=== PATIENT | male | born 1945 | race Caucasian/White ===

== ENCOUNTER → 2018-01-26 08:00 | Outpatient (CLI) | payer MEDICARE, SELFPAY | PROVIDERS: PCP Nurse Practitioner Family; Visit Provider Urology | DX: Z87.448 Personal history of other diseases of urinary system (principal); Z80.42 Family history of malignant neoplasm of prostate; Z87.440 Personal history of urinary (tract) infections; I10 Essential (primary) hypertension | CPT/HCPCS: 99213 ==

== ENCOUNTER 2018-02-22 08:41 | Observation (INO) | payer MEDICARE, SELFPAY ==
[2018-02-22] VITALS (16 sets, daily range): BP systolic 136–176; BP diastolic 72–107; PULSE 68–98; RESP 8–22; TEMP 36.5–37; O2SAT 95–100
--- NOTE | 2018-02-22 09:42 | W.ED.GENAD ---
Discharge Plan Disposition Patient Disposition: [facility] INPATIENT Condition: Stable Discharge Details Chief Complaint: CVA/TIA Clinical Impression: TIA (transient ischemic attack) Reason For Visit: TIA Admit Date/Time: 02/22/18 10:45 Admit Provider: Osmani Carey Attending Provider: Osmani Carey Primary Care Provider: Eugenia Garrett ED Provider: Cynthia Meléndez Discharge Instructions Diet:: Low fat diet. Discharge Data Discharge Date/Time-TO BE ENTERED AT DEPARTURE: 02/22/18 12:53 Medical Decision Making MDM Narrative Medical decision making narrative: Patient is a 72-year-old male with a history of hypertension who presents for 2 episodes of right hand tingling and an episode of blurry vision starting at 745 this morning. All his symptoms are resolved at present. States the 2 episodes of right hand tingling occurred 30 minutes apart, and each lasted 1 minute and then resolved. Denies any weakness of his extremities. States that he was sitting at the computer and had an episode where the right side of the screen was blurry which lasted approximately 1 minute and then resolved. He admits to dizziness with the first episode and not since then. He denies chest pain, shortness of breath, palpitations headache, recent antibiotics or sick contacts. He admits to recent travel in which he drove from [place] 3 hours last night. Blood pressure 176/75, remainder vitals within normal limits. Patient appears nontoxic, airway intact and no acute distress. He has no focal deficits. Normal cranial nerve testing. Muscle strength 5/5 bilateral upper and lower extremities. 0908 --EKG notes a rate of 76, sinus, no acute ST elevation or depression. QTc 441. QRS 92. Differential diagnosis includes CVA, TIA, electrolyte abnormality. Suspect most likely TIA. Will send for stat CT head as well as labs, chest x-ray, coagulation studies. 1000 --CT head and chest x-ray negative. Labs reviewed and unremarkable. Glucose 136. Will admit for TIA. Patient is agreeable. Patient is not taking a daily aspirin. 1040 --discussed with hospitalist -accepts patient for admission. Course documentation not done by Dr. Meléndez. HPI - General Adult General Mode of arrival: ambulatory. Date/Time Provider Initiated Documentation: 02/22/18 09:20. Limitations to Documentation: no limitations. Information obtained by: patient. HPI Narrative: Patient is a 72-year-old male with history of hypertension who presents with 2 episodes of right hand numbness, and one episode of blurry vision this morning. 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 States it lasted approximately 1 minute and then resolved. States that 815 he was on the computer and states the right side of the screen became blurry which last approximately 1 minute and then resolved. He states during this episode of blurry vision, he had return of the right upper extremity numbness which lasted approximately 1 minute and then resolved. He admits to some dizziness with the first episode of right hand tingling but not since then. He denies chest pain, shortness of breath, headache, palpitations. He admits to traveling from [place] last night driving approximately 3 hours. He denies any leg pain or swelling, recent surgery, recent antibiotics, or any other new recent medications. Past medical history: Exercise induced asthma, hypertension, cataract, sciatica Surgical history: Colectomy due to ruptured diverticula, cataract surgery, right rotator cuff repair, hernia repair Social history, former smoker, drinks 2 alcoholic drinks daily, occasional medical marijuana for sciatica Medications: Albuterol, ramipril, as needed Viagra Allergies denies PCP: Maritza Garrett Related Data Home Medications Medication Instructions Recorded Confirmed albuterol sulfate 1 - 2 puff INHALATION Q6H PRN 03/24/14 02/22/18 inhaler fluticasone [Flovent HFA] 12 gm INHALATION DIRECTED 03/24/14 02/22/18 inhaler ramipril 5 mg PO DAILY tab-cap 03/24/14 02/22/18 sildenafil [Viagra] 100 mg PO PRN 03/24/14 02/22/18 Medical Marijuana 1 puff INHALATION PRN 05/13/17 02/23/18 Previous Rx's Medication Instructions Recorded aspirin 325 mg PO DAILY #30 tab 02/23/18 atorvastatin [Lipitor] 40 mg PO QPM #30 tab 02/23/18 Allergies Allergy/AdvReac Type Severity Reaction Status Date / Time No Known Allergies Allergy Unverified 02/22/18 09:27 General Stated Complaint: CVA/TIA HILARY: 3 Review of Systems Review of Systems All systems reviewed & are unremarkable except as noted in HPI and below Constitutional Denies chills, Denies excessive sweating, Denies fatigue, Denies fever(s), Denies weakness and Denies weight loss Eyes Patient Reports system reviewed and no additional complaints, except as docu, Denies blurry vision and Reports loss of vision ENT Denies vertigo, Reports dizziness, Denies otalgia, Denies nasal congestion, Denies sore throat and Denies throat swelling Cardiovascular Denies chest pain, Denies syncope, Denies rapid heart rate and Denies dyspnea Respiratory Denies dyspnea Gastrointestinal Denies abdominal pain, Denies diarrhea and Denies vomiting Genitourinary Denies hematuria, Denies dysuria and Denies flank pain Musculoskeletal Denies back pain, Denies joint swelling and Reports numbness Integumentary/Breasts Denies lesions and Denies rash Neurologic Denies behavioral changes, Denies confusion, Denies vertigo, Reports dizziness, Denies syncope, Denies focal weakness, Reports loss of vision, Reports numbness and Denies weakness Psychiatric Denies behavioral changes, Denies confusion and Denies depression Endocrine Denies excessive sweating and Denies fatigue Hematologic/Lymphatic Denies easy bruising and Denies lymphadenopathy Allergic/Immunologic Denies throat swelling Exam Const General: cooperative and healthy appearing Orientation: alert and awake HENMT Head: normal to inspection Ears: hearing grossly normal bilaterally, external ears normal and TM's normal bilaterally General nose exam: external nose normal Face and sinus: normal facial exam Mouth: oral mucosae normal Teeth and gingiva: dentition normal Throat: posterior oropharynx normal Eyes General: appearance normal, both eyes and all related structures Eyelids: eyelids normal Pupils: PERRL EOM: EOM intact bilaterally Neck Neck: normal visual inspection Lymphatic: no lymphadenopathy noted Chest Chest: normal inspection of the chest Resp Effort & Inspection: normal respiratory effort and able to speak in complete sentences Auscultation: clear to auscultation bilaterally Cardio Rate: regular rate Rhythm: regular rhythm GI Inspection: normal to inspection Palpation: soft, not firm, no guarding, no hepatosplenomegaly, no masses and nontender Auscultation: normal bowel sounds Back/Spine/Pelvis Back: no CVA tenderness Skin General skin exam: no rashes or lesions noted Neuro General: alert, awake, oriented x3 and no focal motor deficits Cranial Nerves: CN's II-XI intact bilaterally Cognition: normal cognition Speech: speech normal Gait: normal gait Motor: muscle tone normal throughout, strength 5/5 throughout and other (Normal radial/median/ulnar nerve function bilaterally) Sensory Exam: no sensory deficits noted Extrem General: normal to inspection, full ROM and normal capillary refill Psych Appearance: grossly normal Mental Status: mental status grossly normal Speech and Movement: speech and movement normal Affect: normal affect Thought Process: normal Course Mr. Martinez is a 72-year-old gentleman with hypertension who presented to the emergency department yesterday after experiencing transient right hand numbness and right hemianopsia. 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 He went to his recliner to rest and after a few minutes his symptoms resolved. He and his then ate breakfast and around 8:15 in the morning he sat down at his desk to read an email. At that point he experienced right hemianopsia and persistent right hand numbness. He mentioned to his that he did not feel right and she noted that he had some altered mental status and increasing confusion. It was at this point that his transported him to the emergency department for further evaluation. In the emergency room he had a twelve-lead EKG which showed no acute ischemic changes with baseline rhythm sinus. CT of the head and chest x-ray were both negative. Blood work notable for a glucose of 136, however blood work was not fasting, otherwise CBC and BMP were completely normal. Despite having complete resolution of his symptoms he was admitted to the hospitalist service for further monitoring for suspected TIA. He went on to have a carotid artery ultrasound which revealed Mild calcific plaque in the common carotid bulbs. No significant internal carotid artery stenosis. Brain MRI showed Minimal small vessel disease of white matter. No acute abnormality. He had a negative MRA of the [place]. He had an echocardiogram which was normal, with an LVEF of 60-65%. His TSH was normal at 2.04. His Hgb A1c was 5.4. His lipid panel revealed elevated LDL at 139, total cholesterol 199, HDL 51, triglicerides were 87. He was monitored on telemetry which revealed no arrhythmia. He was in Sinus bradycardia to sinus rhythm, with rates in the 50s-70s. He had no recurrence of his symptoms throughout his hospital stay. He was completely back to his baseline on the day of discharge. He was started on a full strength aspirin and a high intensity statin. He will follow up with neurology and his PCP. Vital Signs Temperature 97.9 F 02/22/18 08:59 Pulse 97 H 02/22/18 08:59 Respiratory Rate 18 02/22/18 08:59 Blood Pressure 176/75 H 02/22/18 08:59 Pulse Oximetry 99 02/22/18 08:59 Temperature 97.9 F 02/22/18 08:59 Pulse 97 H 02/22/18 08:59 Respiratory Rate 18 02/22/18 09:26 Blood Pressure 176/75 H 02/22/18 08:59 Pulse Oximetry 99 02/22/18 08:59
--- NOTE | 2018-02-22 09:47 | ED.GENADUL_ITS ---
Discharge Plan Disposition Patient Disposition: [facility] INPATIENT Condition: Stable Discharge Details Chief Complaint: CVA/TIA Clinical Impression: TIA (transient ischemic attack) Reason For Visit: TIA Admit Date/Time: 02/22/18 10:45 Admit Provider: Osmani Carey Attending Provider: Osmani Carey Primary Care Provider: Eugenia Garrett ED Provider: Cynthia Meléndez Discharge Instructions Diet:: Low fat diet. Discharge Data Discharge Date/Time-TO BE ENTERED AT DEPARTURE: 02/22/18 12:53 Medical Decision Making MDM Narrative Medical decision making narrative: Patient is a 72-year-old male with a history of hypertension who presents for 2 episodes of right hand tingling and an episode of blurry vision starting at 745 this morning. All his symptoms are resolved at present. States the 2 episodes of right hand tingling occurred 30 minutes apart, and each lasted 1 minute and then resolved. Denies any weakness of his extremities. States that he was sitting at the computer and had an episode where the right side of the screen was blurry which lasted approximately 1 minute and then resolved. He admits to dizziness with the first episode and not since then. He denies chest pain, shortness of breath, palpitations headache, recent antibiotics or sick contacts. He admits to recent travel in which he drove from [place] 3 hours last night. Blood pressure 176/75, remainder vitals within normal limits. Patient appears nontoxic, airway intact and no acute distress. He has no focal deficits. Normal cranial nerve testing. Muscle strength 5/5 bilateral upper and lower extremities. 0908 --EKG notes a rate of 76, sinus, no acute ST elevation or depression. QTc 441. QRS 92. Differential diagnosis includes CVA, TIA, electrolyte abnormality. Suspect most likely TIA. Will send for stat CT head as well as labs, chest x-ray, coagulation studies. 1000 --CT head and chest x-ray negative. Labs reviewed and unremarkable. Glucose 136. Will admit for TIA. Patient is agreeable. Patient is not taking a daily aspirin. 1040 --discussed with hospitalist -accepts patient for admission. Course documentation not done by Dr. Meléndez. HPI - General Adult General Mode of arrival: ambulatory . Date/Time Provider Initiated Documentation: 02/22/18 09:20 . Limitations to Documentation: no limitations . Information obtained by: patient . HPI Narrative: Patient is a 72-year-old male with history of hypertension who presents with 2 episodes of right hand numbness, and one episode of blurry vision this morning. 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 States it lasted approximately 1 minute and then resolved. States that 815 he was on the computer and states the right side of the screen became blurry which last approximately 1 minute and then resolved. He states during this episode of blurry vision, he had return of the right upper extremity numbness which lasted approximately 1 minute and then resolved. He admits to some dizziness with the first episode of right hand tingling but not since then. He denies chest pain, shortness of breath, headache, palpitations. He admits to traveling from [place] last night driving approximately 3 hours. He denies any leg pain or swelling, recent surgery, recent antibiotics, or any other new recent medications. Past medical history: Exercise induced asthma, hypertension, cataract, sciatica Surgical history: Colectomy due to ruptured diverticula, cataract surgery, right rotator cuff repair, hernia repair Social history, former smoker, drinks 2 alcoholic drinks daily, occasional medical marijuana for sciatica Medications: Albuterol, ramipril, as needed Viagra Allergies denies PCP: Maritza Garrett Related Data Home Medications Medication Instructions Recorded Confirmed albuterol sulfate 1 - 2 puff INHALATION Q6H PRN 03/24/14 02/22/18 inhaler fluticasone [Flovent HFA] 12 gm INHALATION DIRECTED 03/24/14 02/22/18 inhaler ramipril 5 mg PO DAILY tab-cap 03/24/14 02/22/18 sildenafil [Viagra] 100 mg PO PRN 03/24/14 02/22/18 Medical Marijuana 1 puff INHALATION PRN 05/13/17 02/23/18 Previous Rx's Medication Instructions Recorded aspirin 325 mg PO DAILY #30 tab 02/23/18 atorvastatin [Lipitor] 40 mg PO QPM #30 tab 02/23/18 Allergies Allergy/AdvReac Type Severity Reaction Status Date / Time No Known Allergies Allergy Unverified 02/22/18 09:27 General Stated Complaint: CVA/TIA HILARY: 3 Review of Systems Review of Systems All systems reviewed & are unremarkable except as noted in HPI and below Constitutional Denies chills, Denies excessive sweating, Denies fatigue, Denies fever(s), Denies weakness and Denies weight loss Eyes Patient Reports system reviewed and no additional complaints, except as docu, Denies blurry vision and Reports loss of vision ENT Denies vertigo, Reports dizziness, Denies otalgia, Denies nasal congestion, Denies sore throat and Denies throat swelling Cardiovascular Denies chest pain, Denies syncope, Denies rapid heart rate and Denies dyspnea Respiratory Denies dyspnea Gastrointestinal Denies abdominal pain, Denies diarrhea and Denies vomiting Genitourinary Denies hematuria, Denies dysuria and Denies flank pain Musculoskeletal Denies back pain, Denies joint swelling and Reports numbness Integumentary/Breasts Denies lesions and Denies rash Neurologic Denies behavioral changes, Denies confusion, Denies vertigo, Reports dizziness, Denies syncope, Denies focal weakness, Reports loss of vision, Reports numbness and Denies weakness Psychiatric Denies behavioral changes, Denies confusion and Denies depression Endocrine Denies excessive sweating and Denies fatigue Hematologic/Lymphatic Denies easy bruising and Denies lymphadenopathy Allergic/Immunologic Denies throat swelling Exam Const General: cooperative and healthy appearing Orientation: alert and awake HENMT Head: normal to inspection Ears: hearing grossly normal bilaterally, external ears normal and TM's normal bilaterally General nose exam: external nose normal Face and sinus: normal facial exam Mouth: oral mucosae normal Teeth and gingiva: dentition normal Throat: posterior oropharynx normal Eyes General: appearance normal, both eyes and all related structures Eyelids: eyelids normal Pupils: PERRL EOM: EOM intact bilaterally Neck Neck: normal visual inspection Lymphatic: no lymphadenopathy noted Chest Chest: normal inspection of the chest Resp Effort & Inspection: normal respiratory effort and able to speak in complete sentences Auscultation: clear to auscultation bilaterally Cardio Rate: regular rate Rhythm: regular rhythm GI Inspection: normal to inspection Palpation: soft, not firm, no guarding, no hepatosplenomegaly, no masses and nontender Auscultation: normal bowel sounds Back/Spine/Pelvis Back: no CVA tenderness Skin General skin exam: no rashes or lesions noted Neuro General: alert, awake, oriented x3 and no focal motor deficits Cranial Nerves: CN's II-XI intact bilaterally Cognition: normal cognition Speech: speech normal Gait: normal gait Motor: muscle tone normal throughout, strength 5/5 throughout and other (Normal radial/median/ulnar nerve function bilaterally) Sensory Exam: no sensory deficits noted Extrem General: normal to inspection, full ROM and normal capillary refill Psych Appearance: grossly normal Mental Status: mental status grossly normal Speech and Movement: speech and movement normal Affect: normal affect Thought Process: normal Course Mr. Martinez is a 72-year-old gentleman with hypertension who presented to the emergency department yesterday after experiencing transient right hand numbness and right hemianopsia. 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 He went to his recliner to rest and after a few minutes his symptoms resolved. He and his then ate breakfast and around 8:15 in the morning he sat down at his desk to read an email. At that point he experienced right hemianopsia and persistent right hand numbness. He mentioned to his that he did not feel right and she noted that he had some altered mental status and increasing confusion. It was at this point that his transported him to the emergency department for further evaluation. In the emergency room he had a twelve-lead EKG which showed no acute ischemic changes with baseline rhythm sinus. CT of the head and chest x-ray were both negative. Blood work notable for a glucose of 136, however blood work was not fasting, otherwise CBC and BMP were completely normal. Despite having complete resolution of his symptoms he was admitted to the hospitalist service for further monitoring for suspected TIA. He went on to have a carotid artery ultrasound which revealed Mild calcific plaque in the common carotid bulbs. No significant internal carotid artery stenosis. Brain MRI showed Minimal small vessel disease of white matter. No acute abnormality. He had a negative MRA of the [place]. He had an echocardiogram which was normal, with an LVEF of 60-65%. His TSH was normal at 2.04. His Hgb A1c was 5.4. His lipid panel revealed elevated LDL at 139, total cholesterol 199, HDL 51, triglicerides were 87. He was monitored on telemetry which revealed no arrhythmia. He was in Sinus bradycardia to sinus rhythm, with rates in the 50s-70s. He had no recurrence of his symptoms throughout his hospital stay. He was completely back to his baseline on the day of discharge. He was started on a full strength aspirin and a high intensity statin. He will follow up with neurology and his PCP. Vital Signs Temperature 97.9 F 02/22/18 08:59 Pulse 97 H 02/22/18 08:59 Respiratory Rate 18 02/22/18 08:59 Blood Pressure 176/75 H 02/22/18 08:59 Pulse Oximetry 99 02/22/18 08:59 Temperature 97.9 F 02/22/18 08:59 Pulse 97 H 02/22/18 08:59 Respiratory Rate 18 02/22/18 09:26 Blood Pressure 176/75 H 02/22/18 08:59 Pulse Oximetry 99 02/22/18 08:59
--- NOTE | 2018-02-22 09:49 | DI.CT_ITS ---
SYMPTOM/DIAGNOSIS: RT HAND TINGLING, R/O ACUTE CVA NONCONTRAST HEAD CT: No intracranial hemorrhage, mass or infarct is seen. The ventricles are normal in size. There are no significant white matter changes or significant atrophy. There is no evidence of skull fracture. The sinuses and mastoid air cells are clear. IMPRESSION: Negative head CT.
[2018-02-22 09:57] LABS: Abs Immature Grans 0.03 k/cumm (0.0-0.09); Absolute Basophil Count 0.02 k/cumm (0.0-0.2); Absolute Lymphocyte Count 1.74 k/cumm (1.2-3.4); Absolute Monocyte Count 0.45 k/cumm (0.11-0.7); Absolute Neutrophil Count 2.72 k/cumm (1.2-6.7); Basophils % 0.4; Eosinophils % 5.7; HGB 17.1 g/dL (13.5-17.5); Immature Grans % 0.6; Lymphocytes % 33.1; Mean Corp. HGB Concentration 34.2 g/dL (32.0-36.0); Mean Corpuscular Volume 93.6 fL (80-95); Monocytes % 8.6; Neutrophils % 51.6; Platelet Count 216 x1000/uL (130-400); RBC 5.34 m/cumm (4.50-6.00); RBC Distribution Width 12.6 % (11.8-14.1); White Blood Cell Count 5.26 k/cumm (4.4-10.8)
--- NOTE | 2018-02-22 10:04 | DI.RAD_ITS ---
SYMPTOM/DIAGNOSIS: RT HAND TINGLING, BLURRY VISION, CONCERN FOR CVA/TIA AP AND LATERAL CHEST: Comparison is made with 14 Mar 2004. The heart size is normal. The aorta shows mild calcification. The lungs appear clear. No infiltrate, effusion or pulmonary edema seen. Degenerative and post surgical changes are seen in the right shoulder. IMPRESSION: No acute abnormality.
[2018-02-22 10:10] LABS: PTT Activated 23.2 sec (21.0-31.4); Prothrombin Time 9.6 sec (9.3-10.8)
[2018-02-22 10:14] LABS: ALT 27 U/L (12-78); AST 20 U/L (15-37); Albumin 3.9 g/dL (3.4-5.0); Alkaline Phosphatase 78 U/L (46-116); Anion Gap 5.6 mmol/L (3-11); BUN 15 mg/dL (7-18); Bilirubin, Total 0.5 mg/dL (0.2-1.0); CO2 30.4 mmol/L (21.0-32.0); CREATININE 1.12 mg/dL (0.70-1.30); Calcium 8.9 mg/dL (8.5-10.1); Chloride 105 mmol/L (98-107); Glucose 136 mg/dL (70-100); Magnesium 2.3 mg/dL (1.8-2.4); Sodium 141 mmol/L (136-145); Total Protein 7.8 g/dL (6.4-8.2)
[2018-02-22 10:15] LABS: Troponin I < 0.02 ng/mL (0.00-0.06)
[2018-02-22 10:49] LABS: Bilirubin Negative (Negative); Blood Trace-intact (Negative); Clarity Clear; Glucose Negative (Negative); Ketones Negative (Negative); Leukocyte Esterase Negative (Negative); Nitrite Negative (Negative); Specific Gravity 1.015 (1.005-1.025); Urobilinogen 0.2 EU/dL (Up TO 0.2); pH 6.5 (5-8)
[2018-02-22 11:15] LABS: Bacteria Rare HPF (Negative); C & S Indicated? No; Casts Negative LPF (Negative); Crystals Negative HPF (Negative); Epithelial Cells Negative HPF (Negative); Mucus Negative (Negative); Other Cells Negative (Negative); RBC 0-2 (0-2); WBC Negative HPF (0-5)
--- NOTE | 2018-02-22 11:29 | DI.US_ITS ---
SYMPTOM/DIAGNOSIS: CVA, TIA CAROTID ULTRASOUND: There is a focus of calcific plaque in the right common carotid bulb. The velocity measurements are within the normal range, consistent with a mild degree of stenosis. Mild calcification is also seen in the left common carotid bulb. The velocity measurements are within the normal range. The vertebral arteries show antegrade flow. IMPRESSION: Mild calcific plaque in the common carotid bulbs. No significant internal carotid artery stenosis.
--- NOTE | 2018-02-22 12:45 | MERGE_ITS ---
*[facility]* *[facility]* [address] [place] [address] Date of study: 02/22/2018 Transthoracic Echocardiography M-mode, complete 2D, complete spectral Doppler, and color Doppler *STUDY CONCLUSIONS* Summary: 1. Left ventricle: The cavity size was normal. Wall thickness was normal. Systolic function was normal. The estimated ejection fraction was 60-65%. Wall motion was normal; there were no regional wall motion abnormalities. 2. Right ventricle: The cavity size was normal. Wall thickness was normal. Systolic function was normal. *PATIENT PRESENTATION* Height: 172.7cm ((68in) ) S/D Pressure: 143 / 79 Weight: 70.3kg ((154.7lb) ) BSA: 1.84m^2 Test start time: 12:45 PM. Test stop time: 01:35 PM. ORDERING Osmani Carey [facility] LINE UP WORKER RT Imelda ([place])(CT), SAMIR REFERRING Cherry *PROCEDURE DATA* Procedure information: The patient was identified by two identifiers. This study was interpreted by [facility]. Pertinent images and digital data are archived for permanent storage and are available for subsequent review. No prior study was available for comparison. Study status: Routine. Transthoracic echocardiography. M-mode, complete 2D, complete spectral Doppler, and color Doppler. A Transthoracic Echocardiogram was performed. Scanning was performed from the parasternal, apical, subcostal, and suprasternal notch acoustic windows. Images were obtained using an [id number] cardiac ultrasound machine. Image quality was adequate. Study completion: The patient tolerated the procedure well. There were no complications. History: PMH: TIA CVA. *CARDIAC ANATOMY* Left ventricle: The cavity size was normal. Wall thickness was normal. Systolic function was normal. The estimated ejection fraction was 60-65%. Wall motion was normal; there were no regional wall motion abnormalities. Diastolic parameters were normal. Aortic valve: Trileaflet; normal thickness leaflets. Mobility was not restricted. Doppler: Transvalvular velocity was within the normal range. There was no stenosis. There was no significant regurgitation. VTI ratio of LVOT to aortic valve: 0.7. Valve area (VTI): 2.4cm^2. Indexed valve area (VTI): 1.3cm^2/m^2. Peak velocity ratio of LVOT to aortic valve: 0.7. Valve area (Vmax): 2.4cm^2. Indexed valve area (Vmax): 1.3cm^2/m^2. Mean velocity ratio of LVOT to aortic valve: 0.7. Valve area (Vmean): 2.4cm^2. Indexed valve area (Vmean): 1.3cm^2/m^2. Mean gradient (S): 3mm Hg. Peak gradient (S): 6.5mm Hg. Aorta: Aortic root: The aortic root was normal in size. Ascending aorta: The ascending aorta was normal in size. Mitral valve: Structurally normal valve. Mobility was not restricted. Doppler: Transvalvular velocity was within the normal range. There was no evidence for stenosis. There was trivial regurgitation. Valve area by pressure half-time: 3.5cm^2. Indexed valve area by pressure half-time: 1.9cm^2/m^2. Left atrium: The atrium was normal in size. Right ventricle: The cavity size was normal. Wall thickness was normal. Systolic function was normal. Pulmonic valve: Doppler: Transvalvular velocity was within the normal range. There was no evidence for stenosis. There was no significant regurgitation. Tricuspid valve: Structurally normal valve. Doppler: Transvalvular velocity was within the normal range. There was no evidence for stenosis. There was trivial regurgitation. Pulmonary artery: Pulmonary systolic pressure was within the normal range, in the range of 30mm Hg to 35mm Hg. Right atrium: The atrium was normal in size. Pericardium: There was no pericardial effusion. Systemic veins: Inferior vena cava: Well visualized. The vessel was patent and normal in size. The respirophasic diameter changes were in the normal range (greater than or equal to 50%). Baseline ECG: Normal sinus rhythm. Measurements Left ventricle Value Reference LV ID, ED, PLAX 4.3 cm 3.5 - 6.0 LV ID, ES, PLAX 2.6 cm 2.1 - 4.0 LV PW thickness, ED, PLAX 1.1 cm LV end-diastolic volume, 1-p A2C 56 ml LV ejection fraction, 1-p A2C 62 % LV end-diastolic volume, 1-p A4C 61 ml LV ejection fraction, 1-p A4C 56 % LV e', lateral 0.098 m/sec LV E/e', lateral 7 LV e', medial 0.085 m/sec LV E/e', medial 8 LV e', average 0.092 m/sec LV E/e', average 7 Ventricular septum Value Reference IVS thickness, ED, PLAX 1.1 cm LVOT Value Reference LVOT ID, A-P 2.1 cm LVOT area 3.4 cm^2 LVOT peak velocity, S 0.88 m/sec LVOT mean velocity, S 0.55 m/sec LVOT VTI, S 17.3 cm LVOT peak gradient, S 3.1 mm Hg LVOT mean gradient, S 1.5 mm Hg Stroke volume (SV), LVOT DP 59 ml Stroke index (SV/bsa), LVOT DP 32 ml/m^2 Aortic valve Value Reference Aortic valve peak velocity, S 1.3 m/sec Aortic valve mean velocity, S 0.79 m/sec Aortic valve VTI, S 24.7 cm Aortic mean gradient, S 3 mm Hg Aortic peak gradient, S 6.5 mm Hg VTI ratio, LVOT/AV 0.7 Aortic valve area, VTI 2.4 cm^2 Velocity ratio, peak, LVOT/AV 0.7 Aortic valve area, peak velocity 2.4 cm^2 Velocity ratio, mean, LVOT/AV 0.7 Aortic valve area, mean velocity 2.4 cm^2 Aortic valve area/bsa, mean velocity 1.3 cm^2/m^2 Aorta Value Reference Aortic root ID, ED 3.5 cm Ascending aorta ID, A-P, S 3.3 cm Left atrium Value Reference LA ID, A-P, ES 3.0 cm LA ID/bsa, A-P 1.7 cm/m^2 <=2.2 LA area, ES, A4C 15.4 cm^2 8.8 - 23.4 LA area, ES, A2C 15 cm^2 LA volume/bsa, ES, 1-p A4C 21 ml/m^2 LA volume, ES, 2-p 37 ml LA volume/bsa, ES, 2-p 20 ml/m^2 LA/aortic root ratio 0.88 Mitral valve Value Reference Mitral E-wave peak velocity 0.68 m/sec Mitral A-wave peak velocity 0.64 m/sec Mitral deceleration time 217 ms 150 - 230 Mitral pressure half-time 63 ms Mitral E/A ratio, peak 1.07 Mitral valve area, PHT, DP 3.5 cm^2 Pulmonary veins Value Reference Pulmonary vein peak velocity, S 0.8 m/sec Pulmonary vein peak velocity, D 0.42 m/sec Pulmonary vein velocity ratio, peak, 1.89 S/D Pulmonary vein A-wave reversal peak 0.59 m/sec velocity Pulmonary vein A-wave reversal 156 ms duration Tricuspid valve Value Reference Tricuspid regurg peak velocity 2.6 m/sec Tricuspid peak RV-RA gradient 26.9 mm Hg Right atrium Value Reference RA area, ES, A4C 13.2 cm^2 8.3 - 19.5 Legend: (L) and (H) bruno values outside specified reference range. I have personally reviewed the images and have reviewed and edited the reported findings. Electronically signed by Rubens Lopez 02/22/2018 14:13
--- NOTE | 2018-02-22 13:57 | PT.INNT ---
PT Notes PHYSICAL THERAPY NOTE 02/22/18 PT consult received, chart reviewed. Attempted to see patient for evaluation, pt not on unit. Will attempt eval 02/23/18 Delia Erazo PT
--- NOTE | 2018-02-22 14:50 | DI.MRI_ITS ---
SYMPTOMS/DIAGNOSIS: ACUTE CEREBROVASCULAR ACCIDENT, TRANSIENT ISCHEMIC ATTACK MRI OF THE BRAIN: Comparison is made with a head CT performed earlier the same day. T2 sagittal, T1, T2, FLAIR, gradient-echo and diffusion axial sequences were performed. There are a few tiny high signal foci in the white matter consistent with mild small vessel disease. No intracranial hemorrhage, mass or acute infarct is seen. There is mild atrophy and mild prominence of the perivascular spaces. The ventricles are normal in size. The vascular flow voids appear intact. The orbits, pituitary and sinuses are unremarkable. IMPRESSION: Minimal small vessel disease of white matter. No acute abnormality. MRA OF THE [place] OF [place]: A 3D [id number] study was performed. There is no evidence of occlusion, significant stenosis or aneurysm. IMPRESSION: Negative MRA of the [place] of [place].
--- NOTE | 2018-02-22 15:48 | W.PM.HP.N ---
Date of service: 02/22/18 Time of Service: 15:48 Assessment and Plan (1) Hypertension: Current visit: Yes Status: Chronic Is typically on Ramipril at home, however in light of suspected TIA will hold antihypertensives to allow for permissive hypertension. Currently systolic blood pressure in the 150s which is completely acceptable. (2) TIA (transient ischemic attack): Start date: 02/22/18 Current visit: Yes Status: Acute Symptoms concerning for TIA. CT of the head is negative. No significant carotid artery stenosis on carotid ultrasound. Results of MRI/MRA, echocardiogram are unavailable at time of dictation. We will start a full strength aspirin and high intensity statin and monitor on continuous telemetry to assess for any cardiac dysrhythmias. Will recheck lipid profile and hemoglobin A1c in the morning. Physical therapy consult pending. History of Present Illness Narrative: Song is a 72-year-old gentleman with hypertension who presented to the emergency department today after experiencing transient right hand numbness and right hemianopsia. 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 He went to his recliner to rest and after a few minutes had resolution of his symptoms. He and his then ate breakfast and around 8:15 in the morning he sat down at his desk to read an email. At this point he experienced right hemianopsia and persistent right hand numbness. He mentioned to his that he did not feel right and she notes that he had some altered mental status and increasing confusion. It was at this point that his transported him to the emergency department for further evaluation. In the emergency room he had a twelve-lead EKG which showed no acute ischemic changes, baseline rhythm sinus. CT of the head and chest x-ray were both negative. Blood work notable for a glucose of 136, however blood work was not fasting, otherwise CBC and BMP were completely normal. Despite having complete resolution of his symptoms he was admitted to the hospitalist service for further monitoring for suspected TIA. Review of Systems Constitutional Reports system reviewed and no additional complaints, except as docu and Reports headache(s) Eyes Patient Reports as per HPI and Reports change in vision ENT Reports system reviewed and no additional complaints, except as docu, Reports dizziness and Reports headache(s) Cardiovascular Reports system reviewed and no additional complaints, except as docu Respiratory Reports system reviewed and no additional complaints, except as docu Gastrointestinal Reports system reviewed and no additional complaints, except as docu Genitourinary Reports system reviewed and no additional complaints, except as docu Musculoskeletal Reports system reviewed and no additional complaints, except as docu and Reports tingling Integumentary/Breasts Reports system reviewed and no additional complaints, except as docu Neurologic Reports as per HPI, Reports confusion, Reports dizziness, Reports headache(s), Reports sensory deficit, Reports tingling and Reports paresthesias Psychiatric Reports system reviewed and no additional complaints, except as docu and Reports confusion Endocrine Reports system reviewed and no additional complaints, except as docu Hematologic/Lymphatic Reports system reviewed and no additional complaints, except as docu Allergic/Immunologic Reports system reviewed and no additional complaints, except as docu Meds Home Medications Medication Instructions Recorded Confirmed Type albuterol sulfate 1 - 2 puff INHALATION Q6H PRN 03/24/14 02/22/18 History inhaler fluticasone [Flovent HFA] 12 gm INHALATION DIRECTED 03/24/14 02/22/18 History inhaler ramipril 5 mg PO DAILY tab-cap 03/24/14 02/22/18 History sildenafil [Viagra] 100 mg PO PRN 03/24/14 02/22/18 History Medical Marijuana 1 puff AD PRN 05/13/17 02/22/18 History nitrofurantoin monohyd/m-cryst 100 mg PO Q12H #14 tab-cap 01/26/18 02/22/18 Clinic [Macrobid] Allergies Allergy/AdvReac Type Severity Reaction Status Date / Time No Known Allergies Allergy Unverified 02/22/18 09:27 Exam Narrative Exam Narrative: General: 72yo male. Well developed and well nourished. No acute distress. A/Ox3. HEENT: Normocephalic, Atraumatic. Conjunctiva clear, sclera non-icteric. PERRL. EOMI. Moist mucous membranes, oropharynx clear. Neck supple, no JVD, thyromegaly or lymphadenopathy. Cardiovascular: Regular rate and rhythm, S1S2, no S3 or S4. No murmur, rub, gallop. Respiratory: Chest expansion symmetrical, respirations unlabored. Lungs clear to auscultation, no adventitious breath sounds. GI: Abdomen round, soft, non-tender to palpation. Normoactive bowel sounds in all 4 quadrants. No hepatosplenomegaly or prominent masses. : deferred Extremities: Lower extremities without deformity or edema Neurological: non-focal. CN 2-12 grossly intact. Psychiatric: Speech clear and articulate. Poorly cooperative. Repeatedly expresses frustration at being admitted. Angry affect. Results Labs : 02/22/18 09:14 02/22/18 09:14 Laboratory Results - last 24 hr 02/22/18 02/22/18 02/22/18 09:14 09:14 09:14 WBC 5.26 RBC 5.34 Hgb 17.1 Hct 50.0 MCV 93.6 MCH 32.0 MCHC 34.2 RDW 12.6 Plt Count 216 MPV 10.0 Immature Gran % 0.6 Neutrophils % 51.6 Lymphocytes % 33.1 Monocytes % 8.6 Eosinophils % 5.7 Basophils % 0.4 Absolute Neutrophils 2.72 Absolute Lymphocytes 1.74 Absolute Monocytes 0.45 Absolute Eosinophils 0.30 Absolute Basophils 0.02 PT 9.6 INR 1.0 APTT 23.2 Sodium 141 Potassium 4.0 Chloride 105 Carbon Dioxide 30.4 Anion Gap 5.6 BUN 15 Creatinine 1.12 Estimated GFR/1.73 m2 >= 60.00 Glucose 136 H Calcium 8.9 Magnesium 2.3 Total Bilirubin 0.5 AST 20 ALT 27 Alkaline Phosphatase 78 Troponin I < 0.02 Total Protein 7.8 Albumin 3.9 Urine Color Urine Clarity Urine pH Ur Specific [place] Urine Protein Urine Ketones Urine Blood Urine Nitrite Urine Bilirubin Urine Urobilinogen Ur Leukocyte Esterase Urine RBC Urine WBC Ur Epithelial Cells Urine Crystals Urine Bacteria Urine Casts Urine Mucus Urine Other Ur Culture Indicated? Urine Glucose 02/22/18 10:26 WBC RBC Hgb Hct MCV MCH MCHC RDW Plt Count MPV Immature Gran % Neutrophils % Lymphocytes % Monocytes % Eosinophils % Basophils % Absolute Neutrophils Absolute Lymphocytes Absolute Monocytes Absolute Eosinophils Absolute Basophils PT INR APTT Sodium Potassium Chloride Carbon Dioxide Anion Gap BUN Creatinine Estimated GFR/1.73 m2 Glucose Calcium Magnesium Total Bilirubin AST ALT Alkaline Phosphatase Troponin I Total Protein Albumin Urine Color Yellow Urine Clarity Clear Urine pH 6.5 Ur Specific [place] 1.015 Urine Protein Negative Urine Ketones Negative Urine Blood Trace-intact H Urine Nitrite Negative Urine Bilirubin Negative Urine Urobilinogen 0.2 Ur Leukocyte Esterase Negative Urine RBC 0-2 Urine WBC Negative Ur Epithelial Cells Negative Urine Crystals Negative Urine Bacteria Rare Urine Casts Negative Urine Mucus Negative Urine Other Negative Ur Culture Indicated? No Urine Glucose Negative
[2018-02-22] MEDS: Atorvastatin 40 MG TAB PO (19:52)
[2018-02-23 00:41] VITALS: BP 132/87; PULSE 64; RESP 15; TEMP 37.1; O2SAT 97
[2018-02-23 04:34] VITALS: BP 151/74; PULSE 75; RESP 18; TEMP 36.3; O2SAT 100
[2018-02-23 07:00] VITALS: PULSE 70
[2018-02-23 07:28] VITALS: O2SAT 98
[2018-02-23 07:44] LABS: Abs Immature Grans 0.02 k/cumm (0.0-0.09); Absolute Basophil Count 0.01 k/cumm (0.0-0.2); Absolute Eosinophil Count 0.31 k/cumm (0.0-0.7); Absolute Lymphocyte Count 1.78 k/cumm (1.2-3.4); Absolute Neutrophil Count 3.74 k/cumm (1.2-6.7); Basophils % 0.2; Eosinophils % 4.8; HCT 49.7 % (40.0-50.0); HGB 16.6 g/dL (13.5-17.5); Immature Grans % 0.3; Lymphocytes % 27.6; Mean Corp. HGB Concentration 33.4 g/dL (32.0-36.0); Mean Corpuscular Hemoglobin 31.2 pg (27.0-33.0); Mean Corpuscular Volume 93.4 fL (80-95); Mean Platelet Volume 9.7 fL (8.0-11.0); Monocytes % 9.3; Neutrophils % 57.8; Platelet Count 218 x1000/uL (130-400); RBC 5.32 m/cumm (4.50-6.00); RBC Distribution Width 12.7 % (11.8-14.1); White Blood Cell Count 6.46 k/cumm (4.4-10.8)
[2018-02-23 08:00] LABS: Anion Gap 5.6 mmol/L (3-11); BUN 16 mg/dL (7-18); CO2 28.4 mmol/L (21.0-32.0); CREATININE 1.18 mg/dL (0.70-1.30); Calcium 8.6 mg/dL (8.5-10.1); Chloride 104 mmol/L (98-107); Cholesterol 199 mg/dL (50-200); Glucose 108 mg/dL (70-100); HDL Cholesterol 51 mg/dL (40-60); LDL CHOLESTEROL 139 mg/dL (<100); Potassium 4.1 mmol/L (3.5-5.1); Sodium 138 mmol/L (136-145); TSH 2.04 uIU/mL (0.358-3.74); Triglyceride 87 mg/dL (30-150)
--- NOTE | 2018-02-23 08:21 | PDOC.CMIN ---
Care Management Initial Assess REASON FOR HOSPITALIZATION:: TIA PAST MEDICAL HISTORY/PAST SURGICAL HISTORY:: Unable to obtain from chart. PREVIOUS FUNCTIONAL STATUS/SOCIAL/FAMILY SUPPORTS:: Nikolay resides with his , Blanca in [place], [place]. He is independent at baseline with all ADLs in the community. He shares that he and his enjoy mountain biking, playing hockey and skiing and are very active. CURRENT FUNCTIONAL STATUS:: Nikolay was lying in bed, his at his bedside when CM met with him. He shared concerns around his stay and was referred to Melanie Seth Quality and Risk to discuss. His primary concern was that the leads of the telemetry machine that attached to his skin were connected to his chest hair and he shared frustration at the pain he endured when they were then moved and removed. ADVANCE DIRECTIVES:: None on file at [facility]. Has patient been provided with information about the portal?: No Did the patient sign up for the portal?: No CODE STATUS:: Full Code INSURANCE COVERAGE / FINANCIAL ISSUES:: Medicare. AARP CURRENT HOME/COMMUNITY SERVICES/EQUIPMENT:: Nikolay reports no current services or equipment. PRIMARY CARE PHYSICIAN:: Eugenia Garrett POTENTIAL DISCHARGE NEEDS:: PT evaluation, follow up appointments. PATIENT/FAMILY EDUCATION NEEDS:: Review discharge instructions, discuss Ask Me Three. ANTICIPATED BARRIERS TO DISCHARGE:: None identified. TRANSPORTATION:: Via private vehicle with his , Blanca. PLAN:: Nikolay will return home when ready per MD. He will follow up with his PCP and plan of care as prescribed, no additional services anticipated at this time. Nikolay will transport home via private vehicle with his , Blanca.
[2018-02-23 08:26] VITALS: PULSE 135
[2018-02-23 08:28] VITALS: BP 165/78; PULSE 85; RESP 16; TEMP 36.2; O2SAT 97
[2018-02-23 08:31] LABS: Hemoglobin A1C 5.4 % (4.5-6.2)
--- NOTE | 2018-02-23 08:51 | INITIAL_ITS ---
Care Management Initial Assess REASON FOR HOSPITALIZATION:: TIA PAST MEDICAL HISTORY/PAST SURGICAL HISTORY:: Unable to obtain from chart. PREVIOUS FUNCTIONAL STATUS/SOCIAL/FAMILY SUPPORTS:: Nikolay resides with his , Blanca in [place], [place]. He is independent at baseline with all ADLs in the community. He shares that he and his enjoy mountain biking, playing hockey and skiing and are very active. CURRENT FUNCTIONAL STATUS:: Nikolay was lying in bed, his at his bedside when CM met with him. He shared concerns around his stay and was referred to Melanie Seth Quality and Risk to discuss. His primary concern was that the leads of the telemetry machine that attached to his skin were connected to his chest hair and he shared frustration at the pain he endured when they were then moved and removed. ADVANCE DIRECTIVES:: None on file at [facility]. Has patient been provided with information about the portal?: No Did the patient sign up for the portal?: No CODE STATUS:: Full Code INSURANCE COVERAGE / FINANCIAL ISSUES:: Medicare. AARP CURRENT HOME/COMMUNITY SERVICES/EQUIPMENT:: Nikolay reports no current services or equipment. PRIMARY CARE PHYSICIAN:: Eugenia Garrett POTENTIAL DISCHARGE NEEDS:: PT evaluation, follow up appointments. PATIENT/FAMILY EDUCATION NEEDS:: Review discharge instructions, discuss Ask Me Three. ANTICIPATED BARRIERS TO DISCHARGE:: None identified. TRANSPORTATION:: Via private vehicle with his , Blanca. PLAN:: Nikolay will return home when ready per MD. He will follow up with his PCP and plan of care as prescribed, no additional services anticipated at this time. Nikolay will transport home via private vehicle with his , Blanca.
--- NOTE | 2018-02-23 08:51 | PDOC.CMDIS ---
LACE Index Scoring Tool - Questions: Length of Stay (in days): 2 Acuity (Admit via E.D.?): Yes E.D. Visits: 1 - Answers: Total Score: 6 Risk of Readmission: Low Risk Care Management Discharge Reason for Hospitalization: TIA Discharge Plan: Nikolay will return home when ready per MD. He will follow up with his PCP and plan of care as prescribed, no additional services anticipated at this time. Nikolay will transport home via private vehicle with his , Blanca. Patient/Family Education Needs: Review discharge instructions, discuss Ask Me Three.
--- NOTE | 2018-02-23 08:52 | PHARADMIT ---
Admission Pharmacy Clinical Review TIA Code Status Full Code Current Weight Wgt- 76.8 kg Renally Cleared and Narrow Therapeutic Index Meds CrCl~ 56 mL/min Meds-OK QTc Value / Action Taken na BP Control, Fever BP-165/78 Tmax- 36.5C Electrolytes reviewed Na- 138 K+4.1 Mag-2.3 DVT Prophylaxis Lovenox 40mg Opiate Usage / Scheduled Bowel Regimen Ordered none Plt/SCr for Heparin / Enoxaparin Plts-218 SCr-1.18 INR for Warfarin inr-1.0 H/H stable, WBC/Bands H&H- 16.6/49.7 WBC- 6.46 Antibiotic appropriateness none Cultures and Sensitivities none Surgical ABX d/c within 24 hr na DM control / Insulin Dosing BG-108 HgA1c- 5.4 Heart Failure (Check EF%) (FERNANDA's, B-Block, Diuretics) none IV to PO Switch No Home Meds Reviewed Yes Home Meds Not Ordered Flovent, Altace, MacroBID, Viagra, Medical Marijuana Comments
[2018-02-23] MEDS: Aspirin 325 MG TAB PO (09:18)
--- NOTE | 2018-02-23 10:20 | W.PM.DS.N ---
Date of service: 02/23/18 Time of Service: 10:22 DS: Diagnosis Discharge Diagnosis (1) Hypertension: Status: Chronic (2) TIA (transient ischemic attack): Status: Acute Discharge Plan Disposition Patient Disposition: HOME Condition: Stable Discharge Details Chief Complaint: CVA/TIA Reason For Visit: TIA Admit Date/Time: 02/22/18 10:45 Admit Provider: Osmani Carey Attending Provider: Osmani Carey Primary Care Provider: Eugenia Garrett ED Provider: Cynthia Mel[facility]dez [facility] Course Hospital Course: Mr. Martinez is a 72-year-old gentleman with hypertension who presented to the emergency department yesterday after experiencing transient right hand numbness and right hemianopsia. 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 He went to his recliner to rest and after a few minutes his symptoms resolved. He and his then ate breakfast and around 8:15 in the morning he sat down at his desk to read an email. At that point he experienced right hemianopsia and persistent right hand numbness. He mentioned to his that he did not feel right and she noted that he had some altered mental status and increasing confusion. It was at this point that his transported him to the emergency department for further evaluation. In the emergency room he had a twelve-lead EKG which showed no acute ischemic changes with baseline rhythm sinus. CT of the head and chest x-ray were both negative. Blood work notable for a glucose of 136, however blood work was not fasting, otherwise CBC and BMP were completely normal. Despite having complete resolution of his symptoms he was admitted to the hospitalist service for further monitoring for suspected TIA. He went on to have a carotid artery ultrasound which revealed Mild calcific plaque in the common carotid bulbs. No significant internal carotid artery stenosis. Brain MRI showed Minimal small vessel disease of white matter. No acute abnormality. He had a negative MRA of [place]. He had an echocardiogram which was normal, with an LVEF of 60-65%. His TSH was normal at 2.04. His Hgb A1c was 5.4. His lipid panel revealed elevated LDL at 139, total cholesterol 199, HDL 51, triglicerides were 87. He was monitored on telemetry which revealed no arrhythmia. He was in Sinus bradycardia to sinus rhythm, with rates in the 50s-70s. He had no recurrence of his symptoms throughout his hospital stay. He was completely back to his baseline on the day of discharge. He was started on a full strength aspirin and a high intensity statin. He will follow up with neurology and his PCP. Home Meds and New Rx's Prescriptions: New atorvastatin [Lipitor] 40 mg Tablet 40 mg PO QPM Qty: 30 RF: 0 aspirin 325 mg Tablet 325 mg PO DAILY Qty: 30 RF: 0 Continue sildenafil [Viagra] 25 MG tablet 100 mg PO PRN RF: 0 albuterol sulfate 8.5 GM HFA aerosol inhaler 1 - 2 puff Inhalation Q6H PRN RF: 0 ramipril 5 MG capsule 5 mg PO DAILY RF: 0 fluticasone [Flovent HFA] 12 GM HFA aerosol inhaler 12 gm Inhalation DIRECTED RF: 0 medical marijuana 1 puff AD PRN RF: 0 Discontinued nitrofurantoin monohyd/m-cryst [Macrobid] 100 MG capsule 100 mg PO Q12H Qty: 14 RF: 0 Discharge Instructions Instructions: Transient Ischemic Attack (DC) Additional Instructions: Begin taking a full strength Aspirin and Atrovastatin daily. You can resume your Ramipril tomorrow. Follow up as scheduled with your PCP and Neurology. Take care! Stand Alone Forms: Nursing Discharge Form Referrals: Eugenia Garrett [Primary Care Provider] - 03/02/18 10:55 am Leilani Antonio MD [ [facility] STAFF PHYSICIAN] - 04/05/18 12:45 pm Activity:: Activity as Tolerated Equipment/Supplies:: No Equipment Needed Diet:: Low fat diet. Discharge Orders Discharge Orders: Discharge Order (Routine); Ordered 02/23/18 Ordered By: Alice Orellana DS: Data Vitals/I&O Vitals and I&O: Vital Signs Temp 36.2 C L 02/23/18 08:28 Pulse 85 02/23/18 08:28 Resp 16 02/23/18 08:28 BP 165/78 H 02/23/18 08:28 Pulse Ox 97 02/23/18 08:28 Intake & Output 02/22/18 02/22/18 02/23/18 11:59 23:59 11:59 Intake Total 220 / 220 480 / 480 Balance 220 / 220 480 / 480 Weight 70.307 kg 70.307 kg 76.8 kg Intake: IV Oral 220 / 220 480 / 480 Labs on day of discharge: Labs from last 24 hours 02/23/18 02/23/18 02/23/18 07:15 07:15 07:15 WBC 6.46 RBC 5.32 Hgb 16.6 Hct 49.7 MCV 93.4 MCH 31.2 MCHC 33.4 RDW 12.7 Plt Count 218 MPV 9.7 Immature Gran % 0.3 Neutrophils % 57.8 Lymphocytes % 27.6 Monocytes % 9.3 Eosinophils % 4.8 Basophils % 0.2 Absolute Neutrophils 3.74 Absolute Lymphocytes 1.78 Absolute Monocytes 0.60 Absolute Eosinophils 0.31 Absolute Basophils 0.01 Sodium 138 Potassium 4.1 Chloride 104 Carbon Dioxide 28.4 Anion Gap 5.6 BUN 16 Creatinine 1.18 Estimated GFR/1.73 m2 >= 60.00 Glucose 108 H Hemoglobin A1c 5.4 Calcium 8.6 Triglycerides 87 Total Cholesterol 199 LDL Cholesterol Direct 139 H HDL Cholesterol 51 TSH 2.04 Urine Color Urine Clarity Urine pH Ur Specific [place] Urine Protein Urine Ketones Urine Blood Urine Nitrite Urine Bilirubin Urine Urobilinogen Ur Leukocyte Esterase Urine RBC Urine WBC Ur Epithelial Cells Urine Crystals Urine Bacteria Urine Casts Urine Mucus Urine Other Ur Culture Indicated? Urine Glucose 02/22/18 10:26 WBC RBC Hgb Hct MCV MCH MCHC RDW Plt Count MPV Immature Gran % Neutrophils % Lymphocytes % Monocytes % Eosinophils % Basophils % Absolute Neutrophils Absolute Lymphocytes Absolute Monocytes Absolute Eosinophils Absolute Basophils Sodium Potassium Chloride Carbon Dioxide Anion Gap BUN Creatinine Estimated GFR/1.73 m2 Glucose Hemoglobin A1c Calcium Triglycerides Total Cholesterol LDL Cholesterol Direct HDL Cholesterol TSH Urine Color Yellow Urine Clarity Clear Urine pH 6.5 Ur Specific [place] 1.015 Urine Protein Negative Urine Ketones Negative Urine Blood Trace-intact H Urine Nitrite Negative Urine Bilirubin Negative Urine Urobilinogen 0.2 Ur Leukocyte Esterase Negative Urine RBC 0-2 Urine WBC Negative Ur Epithelial Cells Negative Urine Crystals Negative Urine Bacteria Rare Urine Casts Negative Urine Mucus Negative Urine Other Negative Ur Culture Indicated? No Urine Glucose Negative
--- NOTE | 2018-02-23 10:28 | PT.INNT ---
PT Notes PHYSICAL THERPAY NOTE 02/23/18 Attempted to see patient for PT Consult, pt sitting on edge of bed, states he has been up walking in room, does not notice any functional deficits. Deferred consultation stating he feels fine and is going home today. Delia Erazo PT
--- NOTE | 2018-02-23 10:34 | DSE_ITS ---
Date of service: 02/23/18 Time of Service: 10:22 DS: Diagnosis Discharge Diagnosis (1) Hypertension: Status: Chronic (2) TIA (transient ischemic attack): Status: Acute Discharge Plan Disposition Patient Disposition: HOME Condition: Stable Discharge Details Chief Complaint: CVA/TIA Reason For Visit: TIA Admit Date/Time: 02/22/18 10:45 Admit Provider: Osmani Carey Attending Provider: Osmani Carey Primary Care Provider: Eugenia Garrett ED Provider: Cynthia Meléndez [facility] Course Hospital Course: Mr. Martinez is a 72-year-old gentleman with hypertension who presented to the emergency department yesterday after experiencing transient right hand numbness and right hemianopsia. 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 He went to his recliner to rest and after a few minutes his symptoms resolved. He and his then ate breakfast and around 8:15 in the morning he sat down at his desk to read an email. At that point he experienced right hemianopsia and persistent right hand numbness. He mentioned to his that he did not feel right and she noted that he had some altered mental status and increasing confusion. It was at this point that his transported him to the emergency department for further evaluation. In the emergency room he had a twelve-lead EKG which showed no acute ischemic changes with baseline rhythm sinus. CT of the head and chest x-ray were both negative. Blood work notable for a glucose of 136, however blood work was not fasting, otherwise CBC and BMP were completely normal. Despite having complete resolution of his symptoms he was admitted to the hospitalist service for further monitoring for suspected TIA. He went on to have a carotid artery ultrasound which revealed Mild calcific plaque in the common carotid bulbs. No significant internal carotid artery stenosis. Brain MRI showed Minimal small vessel disease of white matter. No acute abnormality. He had a negative MRA of the [place]. He had an echocardiogram which was normal, with an LVEF of 60-65%. His TSH was normal at 2.04. His Hgb A1c was 5.4. His lipid panel revealed elevated LDL at 139, total cholesterol 199, HDL 51, triglicerides were 87. He was monitored on telemetry which revealed no arrhythmia. He was in Sinus bradycardia to sinus rhythm, with rates in the 50s-70s. He had no recurrence of his symptoms throughout his hospital stay. He was completely back to his baseline on the day of discharge. He was started on a full strength aspirin and a high intensity statin. He will follow up with neurology and his PCP. Home Meds and New Rx's Prescriptions: New atorvastatin [Lipitor] 40 mg Tablet 40 mg PO QPM Qty: 30 RF: 0 aspirin 325 mg Tablet 325 mg PO DAILY Qty: 30 RF: 0 Continue sildenafil [Viagra] 25 MG tablet 100 mg PO PRN RF: 0 albuterol sulfate 8.5 GM HFA aerosol inhaler 1 - 2 puff Inhalation Q6H PRN RF: 0 ramipril 5 MG capsule 5 mg PO DAILY RF: 0 fluticasone [Flovent HFA] 12 GM HFA aerosol inhaler 12 gm Inhalation DIRECTED RF: 0 medical marijuana 1 puff AD PRN RF: 0 Discontinued nitrofurantoin monohyd/m-cryst [Macrobid] 100 MG capsule 100 mg PO Q12H Qty: 14 RF: 0 Discharge Instructions Instructions: Transient Ischemic Attack (DC) Additional Instructions: Begin taking a full strength Aspirin and Atrovastatin daily. You can resume your Ramipril tomorrow. Follow up as scheduled with your PCP and Neurology. Take care! Stand Alone Forms: Nursing Discharge Form Referrals: Eugenia Garrett [Primary Care Provider] - 03/02/18 10:55 am Leilani Antonio MD [ [facility] STAFF PHYSICIAN] - 04/05/18 12:45 pm Activity:: Activity as Tolerated Equipment/Supplies:: No Equipment Needed Diet:: Low fat diet. Discharge Orders Discharge Orders: Discharge Order (Routine); Ordered 02/23/18 Ordered By: Alice Orellana DS: Data Vitals/I&O Vitals and I&O: Vital Signs Temp 36.2 C L 02/23/18 08:28 Pulse 85 02/23/18 08:28 Resp 16 02/23/18 08:28 BP 165/78 H 02/23/18 08:28 Pulse Ox 97 02/23/18 08:28 Intake & Output 02/22/18 02/22/18 02/23/18 11:59 23:59 11:59 Intake Total 220 / 220 480 / 480 Balance 220 / 220 480 / 480 Weight 70.307 kg 70.307 kg 76.8 kg Intake: IV Oral 220 / 220 480 / 480 Labs on day of discharge: Labs from last 24 hours 02/23/18 02/23/18 02/23/18 07:15 07:15 07:15 WBC 6.46 RBC 5.32 Hgb 16.6 Hct 49.7 MCV 93.4 MCH 31.2 MCHC 33.4 RDW 12.7 Plt Count 218 MPV 9.7 Immature Gran % 0.3 Neutrophils % 57.8 Lymphocytes % 27.6 Monocytes % 9.3 Eosinophils % 4.8 Basophils % 0.2 Absolute Neutrophils 3.74 Absolute Lymphocytes 1.78 Absolute Monocytes 0.60 Absolute Eosinophils 0.31 Absolute Basophils 0.01 Sodium 138 Potassium 4.1 Chloride 104 Carbon Dioxide 28.4 Anion Gap 5.6 BUN 16 Creatinine 1.18 Estimated GFR/1.73 m2 >= 60.00 Glucose 108 H Hemoglobin A1c 5.4 Calcium 8.6 Triglycerides 87 Total Cholesterol 199 LDL Cholesterol Direct 139 H HDL Cholesterol 51 TSH 2.04 Urine Color Urine Clarity Urine pH Ur Specific [place] Urine Protein Urine Ketones Urine Blood Urine Nitrite Urine Bilirubin Urine Urobilinogen Ur Leukocyte Esterase Urine RBC Urine WBC Ur Epithelial Cells Urine Crystals Urine Bacteria Urine Casts Urine Mucus Urine Other Ur Culture Indicated? Urine Glucose 02/22/18 10:26 WBC RBC Hgb Hct MCV MCH MCHC RDW Plt Count MPV Immature Gran % Neutrophils % Lymphocytes % Monocytes % Eosinophils % Basophils % Absolute Neutrophils Absolute Lymphocytes Absolute Monocytes Absolute Eosinophils Absolute Basophils Sodium Potassium Chloride Carbon Dioxide Anion Gap BUN Creatinine Estimated GFR/1.73 m2 Glucose Hemoglobin A1c Calcium Triglycerides Total Cholesterol LDL Cholesterol Direct HDL Cholesterol TSH Urine Color Yellow Urine Clarity Clear Urine pH 6.5 Ur Specific [place] 1.015 Urine Protein Negative Urine Ketones Negative Urine Blood Trace-intact H Urine Nitrite Negative Urine Bilirubin Negative Urine Urobilinogen 0.2 Ur Leukocyte Esterase Negative Urine RBC 0-2 Urine WBC Negative Ur Epithelial Cells Negative Urine Crystals Negative Urine Bacteria Rare Urine Casts Negative Urine Mucus Negative Urine Other Negative Ur Culture Indicated? No Urine Glucose Negative
== END 2018-02-23 11:48 | disposition home or self-care (01) ==
LOC: ER 12:51 → MS 13:11
PROVIDERS: Admitting Provider Internal Medicine; Emergency Provider Physician Assistant; PCP Nurse Practitioner Family; Visit Provider Family Medicine
DX: I10 Essential (primary) hypertension (principal); G45.9 Transient cerebral ischemic attack, unspecified; H53.461 Homonymous bilateral field defects, right side; R20.0 Anesthesia of skin
CPT/HCPCS: 36415; 70544; 80048; 80053; 80061; 83721; 93005; 93306; 99223; 99239; 99285; 70450; 70551; 71046; 81003; 81015; 83036; 83735; 84443; 84484; 85025; 85610; 85730; 93010; 93880; 99217; 99220; G0378

== ENCOUNTER 2018-03-05 01:20 | Outpatient (CLI) | payer MEDICARE, SELFPAY ==
--- NOTE | 2018-03-25 16:52 | W.CARDEVENT ---
Cardiac Event Recorder Cardiac Event Note: [employer]™ cardiac event recorder report Date of service: 03/05/2018 Enrollment: 03/05/2018-03/19/2018 Indication: Transient cerebral attack Referring provider: Aliyah Garrett Prescribing provider: Dr. Haley Findings: 1. Baseline sinus rhythm, heart rate spectrum 52-163/min, average 83/min. 2. Rare PAC, less than 1%, 1 4?beat SVT run, 117/min, no AF. 3. Rare PVC, less than 1%, no VT. 4. No pauses. 5. No symptoms recorded.
--- NOTE | 2018-03-25 16:55 | CER_ITS ---
Cardiac Event Recorder Cardiac Event Note: [employer] cardiac event recorder report Date of service: 03/05/2018 Enrollment: 03/05/2018-03/19/2018 Indication: Transient cerebral attack Referring provider: Aliyah Garrett Prescribing provider: Dr. Haley Findings: 1. Baseline sinus rhythm, heart rate spectrum 52-163/min, average 83/min. 2. Rare PAC, less than 1%, 1 4?beat SVT run, 117/min, no AF. 3. Rare PVC, less than 1%, no VT. 4. No pauses. 5. No symptoms recorded.
== END 2018-03-05 01:40 ==
PROVIDERS: PCP Nurse Practitioner Family; Visit Provider Nurse Practitioner Family
DX: G45.9 Transient cerebral ischemic attack, unspecified (principal)
CPT/HCPCS: 93225

== ENCOUNTER 2018-03-25 16:52 | Outpatient (CLI) | payer MEDICARE, SELFPAY | END 2018-03-25 17:12 | PROVIDERS: PCP Nurse Practitioner Family; Visit Provider Internal Medicine Cardiovascular Disease | DX: G45.9 Transient cerebral ischemic attack, unspecified (principal); I49.1 Atrial premature depolarization; I49.3 Ventricular premature depolarization | CPT/HCPCS: 0298T ==

== ENCOUNTER → 2018-04-05 12:24 | Outpatient (BNVA) | payer MEDICARE, SELFPAY | PROVIDERS: PCP Nurse Practitioner Family; Visit Provider Psychiatry & Neurology Neurology | DX: G45.9 Transient cerebral ischemic attack, unspecified (principal); I10 Essential (primary) hypertension | CPT/HCPCS: 99205; 99215 ==

== ENCOUNTER 2018-04-27 21:09 | Outpatient (REF) | payer MEDICARE, SELFPAY ==
[2018-04-27 22:08] LABS: ALT 55 U/L (12-78); AST 34 U/L (15-37); Albumin 3.9 g/dL (3.4-5.0); Alkaline Phosphatase 80 U/L (46-116); Anion Gap 8.4 mmol/L (3-11); BUN 16 mg/dL (7-18); Bilirubin, Total 1.1 mg/dL (0.2-1.0); CO2 29.6 mmol/L (21.0-32.0); CREATININE 1.15 mg/dL (0.70-1.30); Chloride 103 mmol/L (98-107); Cholesterol 154 mg/dL (50-200); Glucose 93 mg/dL (70-100); HDL Cholesterol 58 mg/dL (40-60); LDL CHOLESTEROL 85 mg/dL (<100); Potassium 4.5 mmol/L (3.5-5.1); Sodium 141 mmol/L (136-145); Total Protein 7.1 g/dL (6.4-8.2); Triglyceride 83 mg/dL (30-150)
== END 2018-04-27 21:29 ==
LOC: NCHCN 21:09
PROVIDERS: PCP Nurse Practitioner Family; Visit Provider Nurse Practitioner Family
DX: G47.62 Sleep related leg cramps (principal); J45.20 Mild intermittent asthma, uncomplicated; E78.5 Hyperlipidemia, unspecified; I10 Essential (primary) hypertension; R33.9 Retention of urine, unspecified; F52.21 Male erectile disorder
CPT/HCPCS: 80053; 80061; 83721

== ENCOUNTER → 2019-02-04 07:56 | Outpatient (BNVA) | payer MEDICARE, SELFPAY | PROVIDERS: PCP Nurse Practitioner Family; Visit Provider Urology | DX: Z87.898 Personal history of other specified conditions (principal); Z87.440 Personal history of urinary (tract) infections | CPT/HCPCS: 99213 ==

== ENCOUNTER 2019-02-17 11:18 | Outpatient (REF) | payer MEDICARE, SELFPAY ==
[2019-02-17 13:56] LABS: ALT 54 U/L (16-63); AST 28 U/L (15-37); Alkaline Phosphatase 80 U/L (46-116); Anion Gap 7.4 mmol/L (3-11); BUN 14 mg/dL (7-18); Bilirubin, Total 0.9 mg/dL (0.2-1.0); CO2 29.6 mmol/L (21.0-32.0); CREATININE 1.01 mg/dL (0.70-1.30); Calcium 8.9 mg/dL (8.5-10.1); Chloride 105 mmol/L (98-107); Glucose 99 mg/dL (70-100); Potassium 4.6 mmol/L (3.5-5.1); Sodium 142 mmol/L (136-145); Total Protein 7.3 g/dL (6.4-8.2)
[2019-02-18 10:26] LABS: Hepatitis C Ab w Rflx HCV PCR Negative (NEGAT)
== END 2019-02-17 11:38 ==
LOC: NCHCN 11:18
PROVIDERS: PCP Nurse Practitioner Family; Visit Provider Nurse Practitioner Family
DX: G47.62 Sleep related leg cramps (principal); E78.5 Hyperlipidemia, unspecified; G45.9 Transient cerebral ischemic attack, unspecified; J45.20 Mild intermittent asthma, uncomplicated; I10 Essential (primary) hypertension; J30.2 Other seasonal allergic rhinitis; F52.21 Male erectile disorder
CPT/HCPCS: 80053; 86803

== ENCOUNTER → 2020-02-07 08:03 | Outpatient (BNVA) | payer MEDICARE, SELFPAY | PROVIDERS: PCP Nurse Practitioner Family; Visit Provider Urology | DX: R33.8 Other retention of urine (principal); Z87.440 Personal history of urinary (tract) infections; Z80.42 Family history of malignant neoplasm of prostate; I10 Essential (primary) hypertension | CPT/HCPCS: 99213 ==

== ENCOUNTER 2020-10-30 13:21 | Outpatient (REF) | payer MEDICARE, SELFPAY ==
[2020-10-30 14:35] LABS: ALT 58 U/L (16-63); AST 44 U/L (15-37); Albumin 3.7 g/dL (3.4-5.0); Alkaline Phosphatase 90 U/L (46-116); Anion Gap 10.3 mmol/L (3-11); BUN 14 mg/dL (7-18); Bilirubin, Total 1.1 mg/dL (0.2-1.0); CO2 25.7 mmol/L (21.0-32.0); CREATININE 0.9 mg/dL (0.70-1.30); Calcium 8.8 mg/dL (8.5-10.1); Chloride 105 mmol/L (98-107); Glucose 101 mg/dL (74-106); Potassium 4.6 mmol/L (3.5-5.1); Sodium 141 mmol/L (136-145); Total Protein 7.1 g/dL (6.4-8.2)
== END 2020-10-30 13:22 | disposition home or self-care (01) ==
LOC: NCHCN 13:21
PROVIDERS: PCP Nurse Practitioner Family; Visit Provider Nurse Practitioner Family
DX: I10 Essential (primary) hypertension (principal); E78.5 Hyperlipidemia, unspecified; K92.2 Gastrointestinal hemorrhage, unspecified
CPT/HCPCS: 80053

== ENCOUNTER → 2021-02-12 09:55 | Outpatient (BNVA) | payer MEDICARE, SELFPAY | PROVIDERS: PCP Nurse Practitioner Family; Referring Provider Nurse Practitioner Family; Visit Provider Urology | DX: Z87.898 Personal history of other specified conditions (principal); Z80.42 Family history of malignant neoplasm of prostate | CPT/HCPCS: 99213 ==

== ENCOUNTER 2021-08-17 16:11 | Emergency (ER) | payer MEDICARE, SELFPAY ==
[2021-08-17 16:24] VITALS: BP 184/84; PULSE 105; RESP 16; TEMP 36.7; O2SAT 97
--- NOTE | 2021-08-17 17:15 | DI.RAD_ITS ---
Exam(s) XR RIBS RT W PA LAT CHEST EXAM: XR RIBS RT W PA LAT CHEST CLINICAL HISTORY: fall onto R anterior ribs, r/o fx TECHNIQUE: COMPARISON: CR XR CHEST 2V PA LATERAL from 02/22/2018 FINDINGS: PA and lateral views of the chest and 3 additional views of the ribs were obtained. No rib fracture. No pneumothorax or pleural effusion. Lungs are clear. No cardiomegaly. IMPRESSION: No evidence of acute process. RADIATION DOSE DELIVERED: Total DLP
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
--- NOTE | 2021-08-17 18:00 | DI.VRAD_ITS ---
PROCEDURE INFORMATION: Exam: XR Right Ribs Exam date and time: 08/17/2021 5:29 PM Age: 76 years old Clinical indication: Injury or trauma; Fall; Blunt trauma (contusions or hematomas); Rib area; Injury details: Right anterior rib pain TECHNIQUE: Imaging protocol: XR Right ribs. Views: 2 views. COMPARISON: CR XR CHEST 2V PA LATERAL 02/22/2018 9:49 AM FINDINGS: Bones/joints: No acute fracture or dislocation. Soft tissues: Unremarkable. IMPRESSION: No acute fracture of dislocation. PROCEDURE INFORMATION: Exam: XR Chest Exam date and time: 08/17/2021 5:29 PM Age: 76 years old Clinical indication: Injury or trauma; Fall; Blunt trauma (contusions or hematomas); Rib area; Injury details: Right anterior rib pain TECHNIQUE: Imaging protocol: XR of the chest. Views: 2 views. COMPARISON: CR XR CHEST 2V PA LATERAL 02/22/2018 9:49 AM FINDINGS: Lungs: Clear lungs. Pleural spaces: No sizable pleural effusion. No pneumothorax. Heart/Mediastinum: Cardiomediastinal silhouette is within normal limits. Bones/joints: No acute displaced fracture or dislocation. IMPRESSION: No acute cardiopulmonary process. Dictated and Authenticated by: Albert Fontanez MD. Ordering:LEIDA Marie MD
== END 2021-08-17 18:47 | disposition home or self-care (01) ==
PROVIDERS: Emergency Provider Physician Assistant; PCP Nurse Practitioner Family
DX: S20.211A Contusion of right front wall of thorax, initial encounter (principal); V00.321A Fall from snow-skis, initial encounter; I10 Essential (primary) hypertension
CPT/HCPCS: 99283; 71046; 71100

== ENCOUNTER → 2022-02-11 09:57 | Outpatient (BNVA) | payer MEDICARE, SELFPAY | PROVIDERS: PCP Nurse Practitioner Family; Referring Provider Nurse Practitioner Family; Visit Provider Urology | DX: R33.8 Other retention of urine (principal); Z87.898 Personal history of other specified conditions; Z87.440 Personal history of urinary (tract) infections | CPT/HCPCS: 99214 ==

== ENCOUNTER 2022-05-26 12:36 | Outpatient (REF) | payer MEDICARE, SELFPAY ==
[2022-05-26 14:54] LABS: ALT 56 U/L (16-63); AST 31 U/L (15-37); Albumin 4.1 g/dL (3.4-5.0); Alkaline Phosphatase 81 U/L (46-116); Anion Gap 7.4 mmol/L (3-11); BUN 18 mg/dL (7-18); CO2 29.6 mmol/L (21.0-32.0); CREATININE 1.5 mg/dL (0.70-1.30); Calcium 9.1 mg/dL (8.5-10.1); Chloride 103 mmol/L (98-107); Estimated GFR 48.25 (mL/min/1.73m2); Glucose 98 mg/dL (74-106); Potassium 4.6 mmol/L (3.5-5.1); Sodium 140 mmol/L (136-145); Total Protein 7.4 g/dL (6.4-8.2)
== END 2022-05-26 12:37 | disposition home or self-care (01) ==
LOC: NCHCN 12:36
PROVIDERS: PCP Nurse Practitioner Family; Visit Provider Nurse Practitioner Family
DX: I10 Essential (primary) hypertension (principal); E78.5 Hyperlipidemia, unspecified; R79.89 Other specified abnormal findings of blood chemistry
CPT/HCPCS: 80053

== ENCOUNTER 2022-07-08 02:02 | Outpatient (CLI) | payer MEDICARE, SELFPAY ==
--- NOTE | 2022-07-08 12:39 | DI.US_ITS ---
Exam(s) US RENAL EXAM: US RENAL CLINICAL HISTORY: CKD N18.9 HYPERTENSION I10 TECHNIQUE: Ultrasound of both kidneys performed using standard protocol. COMPARISON: US US carotid from 02/22/2018 FINDINGS: RIGHT KIDNEY: Measures 12 cm in length. No cysts evident. Normal cortical thickness and corticomedullary differenti ation .No solid masses No intrarenal calculi nor hydronephrosis. LEFT KIDNEY: Measures 14 cm in length. Exhibits moderate severe hydronephrosis. No significant thinning of the c ortical mantle. No cysts evident. Normal cortical thickness and corticomedullary differentiaion. No solids masses. No intrarenal calculi evident. URINARY BLADDER: Prevoid volume is 823 cc Postvoid volume is 459 cc No evidence of obvious bladder mass nor diverticuli. Abnormally enlarged prostate gland. Ureterovesical jets: Right identified. Left not identified, this being the side of the hydronephrosi s. IMPRESSION: 1. There is unilateral moderate-severe left-sided hydronephrosis. Left ureterovesical jet at the le vimal of the urinary bladder was not seen, this implying that there is an obstruction in the left urete r. No hydronephrosis on the opposite-right side. Right ureterovesical jet was identified. 2. Significantly full bladder and large postvoid residual of 459 cc. Enlarged prostate gland. DATA REPOSITORY:
== END 2022-07-08 02:22 ==
LOC: DI 02:02
PROVIDERS: PCP Nurse Practitioner Family; Visit Provider Nurse Practitioner Family
DX: N18.9 Chronic kidney disease, unspecified (principal); I10 Essential (primary) hypertension; N13.30 Unspecified hydronephrosis; N40.0 Benign prostatic hyperplasia without lower urinary tract symptoms; R39.198 Other difficulties with micturition
CPT/HCPCS: 76770

== ENCOUNTER 2022-07-11 14:43 | Outpatient (REF) | payer MEDICARE, SELFPAY ==
[2022-07-11 14:46] LABS: Bilirubin Negative (Negative); Blood Trace-intact (Negative); Clarity Clear (Clear); Glucose Negative (Negative); Ketones Negative (Negative); Leukocyte Esterase Negative (Negative); Nitrite Negative (Negative); Specific Gravity 1.015 (1.005-1.025); Urobilinogen 0.2 EU/dL (Up TO 0.2); pH 6.5 (5-8)
[2022-07-11 14:56] LABS: Bacteria Rare HPF (Negative); C & S Indicated? C&S Done As Ordered; Casts Negative LPF (Negative); Crystals Negative HPF (Negative); Epithelial Cells Rare HPF (Negative); Mucus Negative (Negative); RBC 0-2 HPF (0-2); WBC 0-2 HPF (0-5)
== END 2022-07-11 14:44 | disposition home or self-care (01) ==
LOC: LBN 14:43
PROVIDERS: PCP Nurse Practitioner Family; Visit Provider Nurse Practitioner Family
DX: N18.9 Chronic kidney disease, unspecified (principal); N13.30 Unspecified hydronephrosis
CPT/HCPCS: 81003; 81015; 87086

== ENCOUNTER 2022-07-12 19:49 | Observation (INO) | payer MEDICARE, SELFPAY ==
[2022-07-12] VITALS (28 sets, daily range): BP systolic 124–161; BP diastolic 64–118; PULSE 98–117; RESP 12–21; TEMP 38.3; O2SAT 95–99
--- NOTE | 2022-07-12 20:07 | DI.CT_ITS ---
Exam(s) CT ABDOMEN PELVIS WO EXAM: CT ABDOMEN PELVIS WO CLINICAL HISTORY: fever, urinary retention. TECHNIQUE: Imaging Protocol: Axial computed tomography images with coronal and sagittal reformatted images were created and reviewed. Oral: / no COMPARISON: No exams were available for comparison FINDINGS: ABDOMEN: Lung Bases: Normal where visualized. Coronary artery calcifications Liver: Normal density. No measurable mass. Gallbladder and biliary tract: Gallstone. No gallbladder wall thickening or biliary dilatation. Pancreas: Normal density, no abnormal calcifications or inflammatory process. Spleen: Normal. Kidneys: There is moderate to severe left hydronephrosis. The left ureter is dilated and tortuous do wn to the level of the rear a vesicle junction. No obstructing stone or mass is seen. There is mild right hydronephrosis. Adrenal glands: No masses seen. Lymph nodes: Within normal limits. Abdominal Aorta: Abdominal portion non-dilated. [id number] atherosclerotic changes. PELVIS: Bladder: Bladder is distended. Mild wall thickening. Right-sided diverticulum. Bowel: Diverticulosis. No evidence of diverticulitis. No obstruction or bowel wall thickening. Peritoneal cavity: No ascites, collection or mesenteric inflammatory response. Reproductive organs: Markedly enlarged prostate impressing on base of bladder. Bones: Degenerative changes, unremarkable for age. IMPRESSION: Moderate to severe left hydronephrosis down to the level of the bladder. No obstructing stone or mas s. The prostate is markedly enlarged in the bladder is distended and shows mild wall thickening and trabeculation is well as left-sided diverticulum. Mild right hydronephrosis. RADIATION DOSE DELIVERED: 718.4mGy.cm Total DLP DATA REPOSITORY: All CT scans at this facility are submitted to the National Radiology Data Registry (NRDR) Dose Index Registry (DIR) with the [employer] (ACR). RADIATION OPTIMIZATION: All CT scans at this facility use at least one of these dose optimization te chniques: automated exposure control; mA and/or kV adjustment per patient size (includes targeted exa ms where dose is matched to clinical indication); or iterative reconstruction.
[2022-07-12 20:22] LABS: Abs Immature Grans 0.03 10^3/uL (0.0-0.06); Absolute Basophil Count 0.02 10^3/uL (0.0-0.2); Absolute Eosinophil Count 0.56 10^3/uL (0.0-0.7); Absolute Lymphocyte Count 1.03 10^3/uL (1.2-3.4); Absolute Monocyte Count 0.47 10^3/uL (0.1-0.8); Absolute Neutrophil Count 8.03 10^3/uL (1.2-6.7); Basophils % 0.2; Eosinophils % 5.5; HCT 39.9 % (40.0-50.0); HGB 13.7 g/dL (13.5-17.5); Immature Grans % 0.3; Lactate 1.1 mmol/L (0.6-1.4); Lymphocytes % 10.2; MCH 31.6 pg (27.0-33.0); MCHC 34.3 % (32.0-36.0); MCV 92 fL (80-95); MPV 9.8 fL (8.0-11.0); Monocytes % 4.6; Neutrophils % 79.2; Platelet Count 223 10^3/uL (130-400); RBC 4.34 10^6/uL (4.36-5.78); RDW 11.9 % (11.8-14.1); RDW-SD 40.4 fL; WBC 10.14 10^3/uL (4.4-10.8)
[2022-07-12 20:39] LABS: ALT 54 U/L (16-63); AST 51 U/L (15-37); Albumin 3.6 g/dL (3.4-5.0); Alkaline Phosphatase 91 U/L (46-116); Anion Gap 9.4 mmol/L (3-11); BUN 18 mg/dL (7-18); Bilirubin, Total 1.5 mg/dL (0.2-1.0); CO2 26.6 mmol/L (21.0-32.0); CREATININE 1.8 mg/dL (0.70-1.30); Chloride 101 mmol/L (98-107); Estimated GFR 38.77 (mL/min/1.73m2); Glucose 106 mg/dL (74-106); Potassium 3.7 mmol/L (3.5-5.1); Sodium 137 mmol/L (136-145); Total Protein 7.6 g/dL (6.4-8.2)
[2022-07-12 21:03] LABS: COVID-19 PCR Negative (Negative); Influenza A PCR Negative (Negative); Influenza B PCR Negative (Negative); RSV PCR Negative (Negative)
[2022-07-12 21:05] LABS: Source Nasopharynx
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
[2022-07-12 21:13] LABS: Procalcitonin 0.1 ng/mL
--- NOTE | 2022-07-12 21:45 | DI.VRAD_ITS ---
PROCEDURE INFORMATION: Exam: CT Abdomen And Pelvis Without Contrast Exam date and time: 07/12/2022 9:18 PM Age: 77 years old Clinical indication: Other: Urinary retention TECHNIQUE: Imaging protocol: Computed tomography of the abdomen and pelvis without contrast. COMPARISON: US RENAL 07/08/2022 12:16 PM FINDINGS: Coronary arteries: Coronary artery calcifications/stents identified. Liver: Scattered hepatic and splenic calcifications suggest old granulomatous change. Gallbladder and bile ducts: Gallstone. Pancreas: Normal. No ductal dilation. Spleen: See Liver finding. Adrenal glands: Normal. No mass. Kidneys and ureters: There is moderate to severe left hydronephrosis with hydroureter. No obstructing calculus seen. There is mild right hydroureter. Stomach and bowel: Unremarkable. No obstruction. No mucosal thickening. Appendix: No evidence of appendicitis. Intraperitoneal space: There is some soft tissue stranding in the right inguinal region. Clinical correlation requested with respect to previous hernia repair. Vasculature: Unremarkable. No abdominal aortic aneurysm. Lymph nodes: Unremarkable. No enlarged lymph nodes. Urinary bladder: Mild bladder distention. There are some bladder trabeculae noted. Reproductive: The prostate is enlarged measuring up to 6.2 cm transverse. Bones/joints: Unremarkable. No acute fracture. Soft tissues: Small, fat containing right inguinal hernia. IMPRESSION: Bladder distention with obstructive renal change, left worse than right. Suspect urinary retention secondary to enlarged prostate. Dictated and Authenticated by: Cristy Rashid MD. Ordering:OLENA Weaver MD
[2022-07-12] MEDS: Normal Saline 1,000 ML 1000 ML IV (22:42)
[2022-07-12] MEDS: ACETAMINOPHEN 1,000 MG/100 ML BTL 400 MG IVPB (22:42)
[2022-07-12] MEDS: PIPERACILLIN/TAZO 4.5 GM in Normal Saline 100 ML IVPB (22:42)
[2022-07-12 22:49] LABS: Bilirubin Negative (Negative); Blood Small (Negative); Clarity Clear (Clear); Glucose Negative (Negative); Ketones Negative (Negative); Leukocyte Esterase Negative (Negative); Nitrite Negative (Negative)
[2022-07-12 22:53] LABS: Bacteria Rare HPF (Negative); Casts Negative LPF (Negative); Crystals Negative HPF (Negative); Epithelial Cells Rare HPF (Negative); Mucus Negative (Negative); WBC Negative HPF (0-5)
[2022-07-12 22:54] LABS: C & S Indicated? No
[2022-07-13] VITALS (8 sets, daily range): BP systolic 102–158; BP diastolic 56–83; PULSE 74–114; RESP 16–20; TEMP 37.1–38.1; O2SAT 97–98
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
[2022-07-13 06:08] LABS: Abs Immature Grans 0.02 10^3/uL (0.0-0.06); Absolute Basophil Count 0.01 10^3/uL (0.0-0.2); Absolute Eosinophil Count 0.62 10^3/uL (0.0-0.7); Absolute Lymphocyte Count 0.79 10^3/uL (1.2-3.4); Absolute Monocyte Count 0.44 10^3/uL (0.1-0.8); Absolute Neutrophil Count 5.25 10^3/uL (1.2-6.7); Basophils % 0.1; Eosinophils % 8.7; HCT 35.4 % (40.0-50.0); Immature Grans % 0.3; Lymphocytes % 11.1; MCH 31.3 pg (27.0-33.0); MCHC 33.9 % (32.0-36.0); MCV 92 fL (80-95); MPV 10.1 fL (8.0-11.0); Monocytes % 6.2; Neutrophils % 73.6; Platelet Count 189 10^3/uL (130-400); RBC 3.83 10^6/uL (4.36-5.78); RDW 12.2 % (11.8-14.1); RDW-SD 41.7 fL; WBC 7.13 10^3/uL (4.4-10.8)
[2022-07-13 07:02] LABS: ALT 47 U/L (16-63); AST 37 U/L (15-37); Albumin 2.7 g/dL (3.4-5.0); Alkaline Phosphatase 72 U/L (46-116); BUN 17 mg/dL (7-18); Bilirubin, Total 1.5 mg/dL (0.2-1.0); CREATININE 1.4 mg/dL (0.70-1.30); Calcium 7.9 mg/dL (8.5-10.1); Chloride 107 mmol/L (98-107); Estimated GFR 52.41 (mL/min/1.73m2); Glucose 97 mg/dL (74-106); Potassium 3.5 mmol/L (3.5-5.1); Sodium 140 mmol/L (136-145)
[2022-07-13] MEDS: Normal Saline 1,000 ML 150 ML IV (07:48)
[2022-07-13] MEDS: PIPERACILLIN/TAZO 3.375 GM in Normal Saline 50 ML IVPB ×2 (07:49→15:32)
[2022-07-13] MEDS: Aspirin E.C. 81 MG TABEC PO (08:00)
[2022-07-13] MEDS: Multivitamin TAB 1 TAB PO (08:00)
[2022-07-13] MEDS: Enoxaparin 40 MG/0.4 ML SYR SC (08:00)
[2022-07-13 08:06] LABS: Lab Add On Test DONE
[2022-07-13] MEDS: Tamsulosin 0.4 MG CAPCR PO (08:22)
[2022-07-13] MEDS: Lactated Ringers 1,000 ML 125 ML IV ×2 (08:27→18:02)
--- NOTE | 2022-07-13 13:00 | PDOC.CMIN ---
- If Service Date Differs Date of service: 07/13/22 Time of Service: 13:01 Care Management Initial Assess REASON FOR HOSPITALIZATION:: Fever of unknown origin PAST MEDICAL HISTORY/PAST SURGICAL HISTORY:: All Active Problems (Updated 07/13/22 @ 02:31 by Javan Mcintosh). Renal insufficiency (Chronic). Elevated AST (SGOT) (Acute). Discharge planning issues (Acute). DVT prophylaxis (Acute). Fever of unknown origin (Acute). History of UTI (Acute 01/26/18). H/O urinary retention (Acute 01/04/16). Family history of prostate cancer in father (Acute 01/04/16). TIA (transient ischemic attack) (Acute). Hypertension (Chronic). Medical History (Updated 07/13/22 @ 02:31 by Javan Mcintosh). Ankle fracture. Asthma. Bladder injury. Cataracts, bilateral. Diverticulitis. Dupuytrens contracture. Hypertension. Urinary retention. Surgical History . Colectomy. 2004 PREVIOUS FUNCTIONAL STATUS/SOCIAL/FAMILY SUPPORTS:: Светлана is retired and lives in [facility] with his Blanca, who is a retired CALENDER TENDER. He drives and is active and fully independent with his ADL's at baseline. CURRENT FUNCTIONAL STATUS:: Светлана is lying in bed when CM met with him. He is awake and easily engages in conversation. He shared concerns regarding nursing care he received while in the ER and is referred to Quality and Risk to discuss. His primary concern is the bedside mannor of nursing, and shared frustration with the pain he felt during the gongora catheter insertion. ADVANCE DIRECTIVES:: None on file Has patient been provided with info about the portal/API?: Yes Did the patient sign up for the portal?: Yes (Prior to admission) CODE STATUS:: Full Code INSURANCE COVERAGE / FINANCIAL ISSUES:: Medicare. AARP [facility] CURRENT HOME/COMMUNITY SERVICES/EQUIPMENT:: None PRIMARY CARE PHYSICIAN:: Eugenia Garrett POTENTIAL DISCHARGE NEEDS:: Discharge plan, follow up appointments with PCP, Urology PATIENT/FAMILY EDUCATION NEEDS:: Review discharge instructions, discuss Ask Me Three. ANTICIPATED BARRIERS TO DISCHARGE:: None identified TRANSPORTATION:: Via private vehicle with his , Blanca. PLAN:: Светлана is being closely monitored and treated with IV ABX. Urology consult is ordered and cultures are pending. Anticipate, Светлана will discharge home with no new services when medically ready per provider. He will transport via private vehicle with . He will follow up with community providers and discharge plan of care as prescribed. CM will continue to support pt and his discharge planning needs.
[2022-07-13] MEDS: Acetaminophen 325 MG TAB PO (15:32)
--- NOTE | 2022-07-13 17:19 | PGE_ITS ---
Date of Service Date of service: 07/13/22 Time of Service: 17:19 Subjective Subjective Interval history since last seen: Patient was seen in a brief follow - up. His B thigh erythema and swelling have significantly improved. He is not short of breath. He denies pain. He would like the gongora catheter out, but agrees to keep it in tonight. We discussed that he was made NPO after midnight for a possible cystoscopy/stent tomorrow and that Dr Thao was consulted. We also discussed that venous dopplers were ordered to rule out a blood clot in the legs. Objective Last Vital Signs Temp 38.1 C H 07/13/22 15:38 Pulse 101 H 07/13/22 15:38 Resp 16 07/13/22 15:38 BP 147/71 H 07/13/22 15:38 Pulse Ox 97 07/13/22 15:38 Laboratory Results - last 24 hr 07/12/22 07/12/22 07/12/22 20:05 20:05 20:05 WBC 10.14 RBC 4.34 L Hgb 13.7 Hct 39.9 L MCV 92 MCH 31.6 MCHC 34.3 RDW 11.9 Plt Count 223 MPV 9.8 Immature Gran % 0.3 Neutrophils % 79.2 Lymphocytes % 10.2 Monocytes % 4.6 Eosinophils % 5.5 Basophils % 0.2 Nucleated RBC % 0.0 Absolute Neutrophils 8.03 H Absolute Lymphocytes 1.03 L Absolute Monocytes 0.47 Absolute Eosinophils 0.56 Absolute Basophils 0.02 VBG Lactate 1.1 Sodium 137 Potassium 3.7 Chloride 101 Carbon Dioxide 26.6 Anion Gap 9.4 BUN 18 Creatinine 1.8 H Est GFR (CKD-EPI 2020) 38.77 Glucose 106 Calcium 9.0 Total Bilirubin 1.5 H AST 51 H ALT 54 Alkaline Phosphatase 91 Total Protein 7.6 Albumin 3.6 Procalcitonin 0.1 Urine Color Urine Clarity Urine pH Ur Specific [place] Urine Protein Urine Ketones Urine Blood Urine Nitrite Urine Bilirubin Urine Urobilinogen Ur Leukocyte Esterase Urine RBC Urine WBC Ur Epithelial Cells Urine Crystals Urine Bacteria Urine Casts Urine Mucus Ur Culture Indicated? Urine Glucose COVID-19 Source SARS-CoV-2 (PCR) Influenza Type A (PCR) Influenza Type B (PCR) RSV (PCR) Add-On Test Request 07/12/22 07/12/22 07/13/22 20:15 22:45 05:25 WBC RBC Hgb Hct MCV MCH MCHC RDW Plt Count MPV Immature Gran % Neutrophils % Lymphocytes % Monocytes % Eosinophils % Basophils % Nucleated RBC % Absolute Neutrophils Absolute Lymphocytes Absolute Monocytes Absolute Eosinophils Absolute Basophils VBG Lactate Sodium 140 Potassium 3.5 Chloride 107 Carbon Dioxide 25.0 Anion Gap 8.0 BUN 17 Creatinine 1.4 H Est GFR (CKD-EPI 2020) 52.41 Glucose 97 Calcium 7.9 L Total Bilirubin 1.5 H AST 37 ALT 47 Alkaline Phosphatase 72 Total Protein 6.0 L Albumin 2.7 L Procalcitonin Urine Color Yellow Urine Clarity Clear Urine pH 7.0 Ur Specific [place] 1.020 Urine Protein 30 H Urine Ketones Negative Urine Blood Small H Urine Nitrite Negative Urine Bilirubin Negative Urine Urobilinogen 1.0 H Ur Leukocyte Esterase Negative Urine RBC 5-10 H Urine WBC Negative Ur Epithelial Cells Rare Urine Crystals Negative Urine Bacteria Rare Urine Casts Negative Urine Mucus Negative Ur Culture Indicated? No Urine Glucose Negative COVID-19 Source Nasopharynx SARS-CoV-2 (PCR) Negative Influenza Type A (PCR) Negative Influenza Type B (PCR) Negative RSV (PCR) Negative Add-On Test Request 07/13/22 07/13/22 05:25 Unknown WBC 7.13 RBC 3.83 L Hgb 12.0 L Hct 35.4 L MCV 92 MCH 31.3 MCHC 33.9 RDW 12.2 Plt Count 189 MPV 10.1 Immature Gran % 0.3 Neutrophils % 73.6 Lymphocytes % 11.1 Monocytes % 6.2 Eosinophils % 8.7 Basophils % 0.1 Nucleated RBC % 0.0 Absolute Neutrophils 5.25 Absolute Lymphocytes 0.79 L Absolute Monocytes 0.44 Absolute Eosinophils 0.62 Absolute Basophils 0.01 VBG Lactate Sodium Potassium Chloride Carbon Dioxide Anion Gap BUN Creatinine Est GFR (CKD-EPI 2020) Glucose Calcium Total Bilirubin AST ALT Alkaline Phosphatase Total Protein Albumin Procalcitonin Urine Color Urine Clarity Urine pH Ur Specific [place] Urine Protein Urine Ketones Urine Blood Urine Nitrite Urine Bilirubin Urine Urobilinogen Ur Leukocyte Esterase Urine RBC Urine WBC Ur Epithelial Cells Urine Crystals Urine Bacteria Urine Casts Urine Mucus Ur Culture Indicated? Urine Glucose COVID-19 Source SARS-CoV-2 (PCR) Influenza Type A (PCR) Influenza Type B (PCR) RSV (PCR) Add-On Test Request DONE Time Spent with Patient Time Spent with Patient: <25 minutes Time was spent: preparing to see the patient(eg.review tests), obtaining and/or reviewing separately otained hiistory, ordering medications,tests, procedures, referring, communicating with other health complex care nurse practitioner, indepentently interpreting results, counseling the patient and care coordination
[2022-07-13] MEDS: VANCOMYCIN/WATER (PEG) 1.25 GM/250 ML BAG IV (18:02)
[2022-07-13] MEDS: Normal Saline Flush 10 ML SYR IVP (19:30)
--- NOTE | 2022-07-14 | DI.US_ITS ---
Exam(s) US EXTREMITY VENOUS BI EXAM: US EXTREMITY VENOUS BI CLINICAL HISTORY: ?DVT,BILAT THIGH SWELLING. TECHNIQUE: Bilateral lower extremity venous ultrasound performed using grayscale, color-flow, and sp ectral Doppler analysis. COMPARISON: No exams were available for comparison FINDINGS: The right common femoral, femoral and popliteal veins demonstrate normal compressibility, augmentatio n, and color Doppler. The posterior tibial veins are patent. The saphenofemoral junctions are unremar kable. There is no evidence of a James's cyst. The soft tissues are unremarkable. The left common femoral, femoral and popliteal veins demonstrate normal compressibility, augmentation , and color Doppler. The posterior tibial veins are patent. The saphenofemoral junctions are unremark able. There is a 4.2 x 1.1 x 3.3 cm left popliteal cyst. The soft tissues are unremarkable. IMPRESSION: 1. No evidence of a right lower extremity DVT. 2. No evidence of a left lower extremity DVT. DATA REPOSITORY:
[2022-07-14] MEDS: PIPERACILLIN/TAZO 3.375 GM in Normal Saline 50 ML IVPB ×3 (00:33→16:49)
[2022-07-14] MEDS: Normal Saline Flush 10 ML SYR IVP ×2 (00:38→08:37)
[2022-07-14 03:46] VITALS: BP 122/67; PULSE 102; RESP 16; TEMP 37.4; O2SAT 98
[2022-07-14 06:06] LABS: Abs Immature Grans 0.02 10^3/uL (0.0-0.06); Absolute Basophil Count 0.01 10^3/uL (0.0-0.2); Absolute Monocyte Count 0.48 10^3/uL (0.1-0.8); Absolute Neutrophil Count 3.88 10^3/uL (1.2-6.7); Basophils % 0.2; Eosinophils % 8.8; HCT 36.3 % (40.0-50.0); HGB 12.4 g/dL (13.5-17.5); Immature Grans % 0.4; Lymphocytes % 14.1; MCH 31.2 pg (27.0-33.0); MCHC 34.2 % (32.0-36.0); MCV 91 fL (80-95); MPV 10.3 fL (8.0-11.0); Monocytes % 8.4; Neutrophils % 68.1; Platelet Count 215 10^3/uL (130-400); RBC 3.97 10^6/uL (4.36-5.78); RDW 11.9 % (11.8-14.1); RDW-SD 40.2 fL; WBC 5.69 10^3/uL (4.4-10.8)
[2022-07-14 06:23] LABS: Anion Gap 8.7 mmol/L (3-11); BUN 15 mg/dL (7-18); CO2 23.3 mmol/L (21.0-32.0); CREATININE 1.2 mg/dL (0.70-1.30); Calcium 8.3 mg/dL (8.5-10.1); Chloride 107 mmol/L (98-107); Estimated GFR 63.07 (mL/min/1.73m2); Glucose 93 mg/dL (74-106); Magnesium 1.7 mg/dL (1.8-2.4); Potassium 3.8 mmol/L (3.5-5.1); Sodium 139 mmol/L (136-145)
[2022-07-14 07:29] VITALS: BP 165/78; PULSE 110; RESP 16; TEMP 36.9; O2SAT 99
--- NOTE | 2022-07-14 07:47 | W.PM.PROGNOT ---
Date of Service Date of service: 07/14/22 Time of Service: 07:47 Assessment and Plan Assessment and plan (1) Fever of unknown origin: Status: Resolved Assessment and plan: Getting overt fevers after 4-5 days of chills without clear source of infection. I agree with broad spectrum coverage until cultures return. Blood culture negative X 24 hours, we will continue to monitor until 72 hours from collection Urine showed < [id number] of mixed GP maribel-not showing infection. Exam for prostatitis was The most likely source is urine, but his urinalysis isn't really c/w infection. There are not signs of obstructing mask or abcess on the CT that could explain the bland urine. I also did prostate exam that was not c/w prostaitis. Flu/COVID negative, no URI symptoms. Redness in legs more in the thighs and more on left to my exam. DVT can cause fever. [place] looked with POCUS in the ED, but we may have to consider repeating if there are others sources of fever Redness is not typical for cellulitis, but neither does it look like venous stasis dermatitis and on my exam is definitely more on the left into the thigh. Strep infection is possible. If this focal redness persists I would image the leg. (2) Urinary retention: Assessment and plan: He has a long history of bladder dysfunction as well as a large prostate, but has not been on alpha leroy or 1-U-fwkmbcqrb inhibitor. Will start tamsulosin. Urology consulted. With the left hydronephrosis I do wonder about an infection in the left urinary tract that is not draining, though we don't see signs on the CT scan. Urology consultation: Dr. Thao's recommendations: Fever of unknown origin: ?Acute Hydronephrosis, left: ?Acute ? ? ? Assessment and plan: He has improved with antibiotics, but the hydronephrosis is still concerning to me that there may be possibility of infected urine trapped up in the left kidney.? I would recommend a cystoscopy and stent placement to allow the kidneys to drain.? We would likely need a return trip to the operating room after the stent has been allowed to do well in the ureter for a week or 2.? We can then do ureteroscopy to ensure there is no distal ureteral mass causing the hydronephrosis. Patient is in the OR at this time for stent placement.Patient will follow up with Dr. Thao as an outpatient. Planning on discharge on 07/15/2022 if patient remains stable and afebrile throughout the night. (3) Hypertension: Status: Chronic Assessment and plan: The patient is not on antihypertensive medicine at this time.. He was on Ramipril which was stopped by PCP due to increased Creatinine, and Amlodipine was started. Patient c/o swelling that he links to the amlodipine and would rather take Ramipril. Patient has proteinuria. Consider restarting an ACEI when renal function is back to baseline. It will be necessary to continue monitoring renal function and potassium levels (4) Elevated AST (SGOT): Status: Resolved Assessment and plan: AST was < then 5 times upper limit of normal and repeated one was 37 this AM. It is recommended to follow up as an outpatient in 3 to 6 months. (5) Renal insufficiency: Status: Resolved Assessment and plan: Baselin Creatinine 0.9 to 1.0 but was 1.5 on admission Day 1, today is day 3 and Creatinine is 1.2 with a BUN of 15. Patient might have had a post-renal etiology to this rise in creatinine due to his left ureter findings on cystoscopy today. Continue to monitor renal function (6) Asthma: Assessment and plan: Slight wheeze on exam, refused albuterol at this time, will ask if needed continue ICS and albuterol prn. (7) DVT prophylaxis: Status: Deleted Assessment and plan: We will hold LMWH and consult with urology on time frame to resume post- intervention. Will start SCD's for now. (8) Discharge planning issues: Status: Deleted Assessment and plan: No needs are foreseen upon discharge home. Urology recommends discharge home if afebrile and stable overnight and outpatient follow up Discussed with Dr. Hernández Subjective Subjective Interval history since last seen: Patient is reporting feeling better, denies chills, fever, night sweats, dizziness,palpitation, chest pain, shortness of breath, abdominal pain, dysuria, or paresthesia. Patient is NPO this AM for projected intervention by urology. But he did not report change in appetite or thirst. Exam Narrative Exam Narrative: Constitutional: Patient is in bed, looking comfortable , speaks in full sentences, spouse at bedside during the physical exam HEENT: normocephalic, no adenopathy, facial structures and eyes, oral mucosa Neuro: Alert and oriented X 3, no neurological deficits Cardiac: S1, S2, no murmur, regular, pulses are presents to all extremities, 2+ left leg edema> right leg edema Resp: Clear lung leon bilaterally in upper lobes, Scattered end exp. wheezing heard in lower lobes, no laryngeal wheezing. GI: Abdomen is semi-firm, non-tender, flat :Hardin in place patent, light red urine without clots Musk:?Push and pull 5/5 to upper and lower extremities, no ROM limitation. Skin: intact, no lesion observe, no jaundice Psych: Congruent Objective Last Vital Signs Temp 98.4 F 07/14/22 07:29 Pulse 110 H 07/14/22 07:29 Resp 16 07/14/22 07:29 BP 165/78 H 07/14/22 07:29 Pulse Ox 99 07/14/22 07:29 Laboratory Results - last 24 hr 07/13/22 07/14/22 07/14/22 Unknown 05:35 05:35 WBC 5.69 RBC 3.97 L Hgb 12.4 L Hct 36.3 L MCV 91 MCH 31.2 MCHC 34.2 RDW 11.9 Plt Count 215 MPV 10.3 Immature Gran % 0.4 Neutrophils % 68.1 Lymphocytes % 14.1 Monocytes % 8.4 Eosinophils % 8.8 Basophils % 0.2 Nucleated RBC % 0.0 Absolute Neutrophils 3.88 Absolute Lymphocytes 0.80 L Absolute Monocytes 0.48 Absolute Eosinophils 0.50 Absolute Basophils 0.01 Sodium 139 Potassium 3.8 Chloride 107 Carbon Dioxide 23.3 Anion Gap 8.7 BUN 15 Creatinine 1.2 Est GFR (CKD-EPI 2020) 63.07 Glucose 93 Calcium 8.3 L Magnesium 1.7 L Add-On Test Request DONE Time Spent with Patient Time Spent with Patient: 35-49 minutes Time was spent: preparing to see the patient(eg.review tests), obtaining and/or reviewing separately otained hiistory, indepentently interpreting results and counseling the patient
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
--- NOTE | 2022-07-14 10:27 | CMPROGNOTE_ITS ---
- If Service Date Differs Date of service: 07/14/22 Time of Service: 10:27 Care Management Progress Note S/O: Светлана continues to require close monitoring and treatment with IV ABX. A Urology consult was done this morning and he went to the OR for a surgical intervention with Dr. Thao today. CM will follow. A: 77 year old make admitted to [facility] on 07/12/22 for Fever of unknown origin P: Светлана is being closely monitored and treated with IV ABX. Urology consult is ordered and cultures are pending. Anticipate, Светлана will discharge home with no new services when medically ready per provider. He will transport via private vehicle with . He will follow up with community providers and discharge plan of care as prescribed. CM will continue to support pt and his discharge planning needs.
[2022-07-14 11:40] VITALS: BP 149/77; PULSE 92; RESP 16; TEMP 37.2; O2SAT 98
[2022-07-14] MEDS: VANCOMYCIN/WATER (PEG) 1.25 GM/250 ML BAG IV (12:07)
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
--- NOTE | 2022-07-14 13:15 | DI.RAD_ITS ---
Exam(s) XR RETROGRADE IN OR EXAM: XR RETROGRADE IN OR CLINICAL HISTORY: LEFT HYDRONEPHROSIS TECHNIQUE: 2D and realtime digital imaging was performed. CONTRAST MATERIAL: Refer to procedure report. COMPARISON: No exams were available for comparison FINDINGS: Fluoroscopy was provided for Dr. Thoa during the performance of a retrograde evaluation of the hao l collecting system. Please refer to the procedure report for complete details. Ka,r=4.7 mGy IMPRESSION: RADIATION DOSE DELIVERED:
[2022-07-14 13:25] VITALS: BMI 25.0
--- NOTE | 2022-07-14 13:52 | PHA.REVIEW2 ---
Pharmacy Admission Review - Admission Clinical Review (Last Reviewed 07/13/22 @ 02:18 by Javan Mcintosh) Hydronephrosis, left (Acute) Elevated AST (SGOT) (Acute) Discharge planning issues (Acute) DVT prophylaxis (Acute) Fever of unknown origin (Acute) ibuprofen Adverse Reaction (Unverified 07/12/22 21:38) Resuscitation Status Full Code Height 5 ft 8 in Weight 74.8 kg - Renal Dosing Renal Dosing: BUN 15 mg/dL (7-18) 07/14/22 05:35 Creatinine 1.2 mg/dL (0.70-1.30) 07/14/22 05:35 Medications needing adjustments: Reviewed (Crcl ~56 mL/min current meds okay) - Anticoagulation Anticoagulation: Hgb 12.4 g/dL (13.5-17.5) L 07/14/22 05:35 Hct 36.3 % (40.0-50.0) L 07/14/22 05:35 Plt Count 215 10^3/uL (130-400) 07/14/22 05:35 Creatinine 1.2 mg/dL (0.70-1.30) 07/14/22 05:35 DVT Prophylaxis: Reviewed Medications: Enoxaparin (placed on hold for possible stent placement today) Therapeutic Anticoagulation: N/A - Opiate Usage Evaluate Pain Scale/Pains Meds: N/A - Relevant Labs Sodium 139 mmol/L (136-145) 07/14/22 05:35 Potassium 3.8 mmol/L (3.5-5.1) 07/14/22 05:35 Chloride 107 mmol/L (98-107) 07/14/22 05:35 Magnesium 1.7 mg/dL (1.8-2.4) L 07/14/22 05:35 Electrolytes, C-Reactive P, ESR: Reviewed (PO mag ordered BID) - DM Control DM Control: Glucose 93 mg/dL (74-106) 07/14/22 05:35 DM Control: Reviewed (no DM noted in pt's medical history) - Cardiac Review BP, HR, EF%: Reviewed (HR has been mostly elevated and BP has been up and some so far this admission) - Qtc Review QTc: N/A - IV to PO Switch IV Medications: Reviewed - Home Meds Home Med List reviewed: Reviewed Relevent Home Meds Not ordered & why?: fluticasone inh. (has mometasone subbed for this), ramipril (see H&P), sildenafil (PRN) - Current meds Current Medication Order Review: Intervened (adjusted the schedule on the albuterol order from PRN MARI to PRN PRN per H&P) - Comments Comments/Follow Ups: Watch BP, HR, SCr, mag, labs for culture results and for med changes (possible renal dose adjustments, antibiotic de-escalation) Antibiotic Review - Pharmacy Antibiotic Review Pharmacy Antibiotic Activity: C/S review (BC no growth at 24 hours, UC growing gram+ maribel), Reviewed, no change (vanco and zosyn (day 2) ordered to cover for fever with unknown origin)
--- NOTE | 2022-07-14 15:26 | W.PM.OP ---
Date of service: 07/14/22 Time of Service: 15:26 Operative Note Operative Note DATE OF PROCEDURE: 07/14/22 PRE-OP DIAGNOSIS: Left hydronephrosis PROCEDURE: Cystoscopy, left retrograde pyelogram, insert left ureteral stent SURGEON: Darrion hTao ANESTHESIA TYPE: General:No Airway Refer to Anesthesia Record ESTIMATED BLOOD LOSS: 10 PATHOLOGY: none sent COMPLICATIONS: None Patient was transported to: PACU Patient's condition: stable Implants: 6 [place] by 22 to 30 cm left ureteral stent Indications: This is a 77-year-old gentleman who has a history of left hydronephrosis identified on renal ultrasound. He presented to the emergency department with fevers. CT scan confirmed a dilated left kidney and ureter with no obvious stone. He presents for placement of a ureteral stent Findings: Markedly dilated and tortuous left ureter with possible filling defect in the left distal ureter Procedure Description: The patient was given antibiotics and brought to the operating room on 07/14/2022. After successful induction of general anesthesia, he was placed in the dorsal lithotomy position. His genitalia was prepped and draped. 2% Xylocaine jelly was instilled into the urethra to act as a local anesthetic. A 22 [place] rigid cystoscope was passed through the urethra into the bladder. The urethra and bladder were inspected using 30 degree lens. The pendulous, bulbar and membranous urethra appeared normal with no strictures. The prostatic urethra showed lateral lobe enlargement and a small median lobe. The bladder neck was entered and the bladder mucosa was inspected. The left ureteral orifice was identified and was cannulated with a 5 [place] access catheter. A retrograde pyelogram was obtained by injecting Omnipaque through the access catheter under fluoroscopic guidance. The left distal ureter was quite tortuous and actually seemed to head caudally before it turned and moved more cranially. There was increased density of contrast in the most dependent portion of the loop of distal ureter. I was then able to maneuver a Glidewire through the lumen of the access catheter and advanced the wire up the remainder of the ureter. The 6 [place] variable length ureteral stent was advanced over the wire. The distal end of the stent was curled in the bladder and the proximal end was curled in the renal pelvis. The positioning of the stent was confirmed both fluoroscopically and cystoscopically. The cystoscope was removed. A 16 [place] Hardin catheter was then passed back through the urethra into the bladder. The catheter balloon was inflated with 10 cc of sterile water. The catheter was hooked to gravity drainage.
[2022-07-14 15:36] VITALS: BP 130/76; PULSE 84; RESP 16; TEMP 36.6; O2SAT 98
--- NOTE | 2022-07-14 15:36 | W.ANESPOSTOP ---
Postoperative Evaluation Date, Time and Location Date Performed: 07/14/22 Time Performed: 15:36 Patient Location: Med/Surg Vital Signs Most Recent Imported Vital Signs: Most Recent Vital Signs Temp Pulse Resp BP Pulse Ox 36.6 C 84 16 130/76 98 07/14/22 15:36 07/14/22 15:36 07/14/22 15:36 07/14/22 15:36 07/14/22 15:36 Pain Score Most Recent Pain Score: Most Recent Pain Score Pain Level 0 07/14/22 15:36 Assessment Mental Status: Awake (Alert & Oriented to Patient Baseline) Airway and Respiratory Function: Patent airway with normal (patient baseline) respiratory exam Cardiovascular Function: Hemodynamically Stable Hydration Status: Adequately Hydrated Nausea & Vomiting: No Nausea or Vomiting Pain: Pt. Denies Any Pain Peripheral Nerve Block: Patient did not receive a nerve block
--- NOTE | 2022-07-14 19:57 | W.PM.PROGNOT ---
Date of Service Date of service: 07/14/22 Time of Service: 19:58 Assessment and Plan Assessment and plan (1) Fever of unknown origin: Status: Acute Assessment and plan: The patient came in with a fever and evidence of obstructive uropathy and a negative UA. He also had erythema BLEs suspicious for BLE cellulitis. His urine culture is growing a mix gram positive maribel <10,000 CFU. It is possible he has a UTI but we are not able to culture it or see evidence of it by UA because it was above the level of obstruction. S/p cysto/stent. Erythema BLEs resolved very quickly. Blood cultures are negative to date. Continue empiric vancomycin/zosyn for now. I think he could be discharged home tomorrow with PO antibiotics. (2) Hydronephrosis, left: Status: Acute Assessment and plan: S/p cysto/stent. Defer to urology. (3) Urinary retention: Assessment and plan: H/o bladder dysfunction and prostatomegaly. Started on flomax. Continue gongora catheter. Defer to urology. (4) KIRSTIN (acute kidney injury): Status: Resolved Assessment and plan: Suspect both pre and post renal components. Obstruction now resolved. IVF d/c'ed. Continue to monitor Cr. Hold Lance-i. (5) Hypertension: Status: Chronic Assessment and plan: Would continue to hold lance-i for now. (6) Asthma: Assessment and plan: No wheezing today - sounds completely clear. Continue home ICS and albuterol prn. (7) Hypomagnesemia: Status: Acute Assessment and plan: Replete and recheck in am. (8) DVT prophylaxis: Status: Acute Assessment and plan: Enoxaparin (9) Discharge planning issues: Status: Acute Assessment and plan: Full code Anticipate discharge home in the next 24-48 hrs. Subjective Subjective Interval history since last seen: Mr Martinez is s/p cystoscopy/stent today by Dr Thao. He is not in pain. He denies dizziness, chest pain, shortness of breath, nausea. The redness in his legs seems resolved to him. He would like to go home tomorrow. Exam Narrative Exam Narrative: General: Pleasant male who is resting comfortably in bed, A&Ox3, NAD HEENT: EOMI, MMM Heart: RRR, no m/r/g Lungs: CTAB Abdomen: soft, nontender, nondistended : has a gongora with blood-tinged urine Extremities: no edema BLEs, no erythema BLEs, no c/c. Objective Last Vital Signs Temp 36.6 C 07/14/22 15:36 Pulse 84 07/14/22 15:36 Resp 16 07/14/22 15:36 BP 130/76 07/14/22 15:36 Pulse Ox 98 07/14/22 15:36 Laboratory Results - last 24 hr 07/13/22 07/14/22 07/14/22 05:25 05:35 05:35 WBC 5.69 RBC 3.97 L Hgb 12.4 L Hct 36.3 L MCV 91 MCH 31.2 MCHC 34.2 RDW 11.9 Plt Count 215 MPV 10.3 Immature Gran % 0.4 Neutrophils % 68.1 Lymphocytes % 14.1 Monocytes % 8.4 Eosinophils % 8.8 Basophils % 0.2 Nucleated RBC % 0.0 Absolute Neutrophils 3.88 Absolute Lymphocytes 0.80 L Absolute Monocytes 0.48 Absolute Eosinophils 0.50 Absolute Basophils 0.01 Sodium 139 Potassium 3.8 Chloride 107 Carbon Dioxide 23.3 Anion Gap 8.7 BUN 15 Creatinine 1.2 Est GFR (CKD-EPI 2020) 63.07 Glucose 93 Calcium 8.3 L Magnesium 1.7 L PSA Screen 6.0 Objective Narrative Objective Narrative: US venous BLEs: 1. No evidence of a right lower extremity DVT. 2. No evidence of a left lower extremity DVT. Time Spent with Patient Time Spent with Patient: 25-34 minutes Time was spent: preparing to see the patient(eg.review tests), obtaining and/or reviewing separately otained hiistory, ordering medications,tests, procedures, referring, communicating with other health senior care manager, indepentently interpreting results, counseling the patient and care coordination
[2022-07-15] MEDS: PIPERACILLIN/TAZO 3.375 GM in Normal Saline 50 ML IVPB ×2 (00:31→07:57)
[2022-07-15] MEDS: VANCOMYCIN/WATER (PEG) 1.25 GM/250 ML BAG IV (06:07)
[2022-07-15 06:42] LABS: Abs Immature Grans 0.02 10^3/uL (0.0-0.06); Absolute Basophil Count 0.01 10^3/uL (0.0-0.2); Absolute Lymphocyte Count 0.77 10^3/uL (1.2-3.4); Absolute Neutrophil Count 4.31 10^3/uL (1.2-6.7); Basophils % 0.2; Eosinophils % 8.1; HCT 37.3 % (40.0-50.0); HGB 12.6 g/dL (13.5-17.5); Immature Grans % 0.3; Lymphocytes % 12.4; MCH 31.4 pg (27.0-33.0); MCHC 33.8 % (32.0-36.0); MCV 93 fL (80-95); MPV 9.9 fL (8.0-11.0); Monocytes % 9.7; Neutrophils % 69.3; Platelet Count 248 10^3/uL (130-400); RBC 4.01 10^6/uL (4.36-5.78); RDW 11.9 % (11.8-14.1); RDW-SD 41.1 fL; WBC 6.21 10^3/uL (4.4-10.8)
[2022-07-15 07:00] LABS: Anion Gap 9.1 mmol/L (3-11); BUN 18 mg/dL (7-18); CO2 24.9 mmol/L (21.0-32.0); CREATININE 1.2 mg/dL (0.70-1.30); Calcium 8.9 mg/dL (8.5-10.1); Chloride 106 mmol/L (98-107); Estimated GFR 63.07 (mL/min/1.73m2); Glucose 90 mg/dL (74-106); Magnesium 1.9 mg/dL (1.8-2.4); Potassium 3.6 mmol/L (3.5-5.1); Sodium 140 mmol/L (136-145)
--- NOTE | 2022-07-15 07:36 | W.PM.PROGNOT ---
Date of Service Date of service: 07/15/22 Time of Service: 07:37 Assessment and Plan Assessment and plan (1) Hydronephrosis, left: Status: Acute (2) History of UTI: Status: Acute (3) H/O urinary retention: Status: Acute Assessment and plan: His fever has been proved. We do not have an actual positive culture showing a source for the fever, but with his improvement while he was on IV antibiotics, I think it is reasonable to send him home on oral antibiotics. The appearance of his ureter, especially the distal ureter on the left, his quite unusual. We will allow the ureteral stent to dwell in place for a week or 2 and then bring him back to the operating room as an outpatient to pass the ureteroscope up the ureter and visualize for any filling defects that might be present. He does have a history of urinary retention and performs CIC at home when needed. He assures me that he has supplies to do CIC at home, so I think it is reasonable to remove his Hardin catheter and allow him to go home later today. I will leave it up to the hospitalist team in regards to his antibiotic recommendation and his blood pressure medications. Subjective Subjective Interval history since last seen: The patient was fairly comfortable overnight. He has been afebrile for the past 24 hours. He did not develop clot retention. Exam Narrative Exam Narrative: He appears well. His vital signs are documented elsewhere in the chart His urine is transparent and the catheter tubing He is awake and alert Objective Last Vital Signs Temp 36.6 C 07/14/22 15:36 Pulse 84 07/14/22 15:36 Resp 16 07/14/22 15:36 BP 130/76 07/14/22 15:36 Pulse Ox 98 07/14/22 15:36 Laboratory Results - last 24 hr 07/13/22 07/15/22 07/15/22 05:25 05:40 05:40 WBC 6.21 RBC 4.01 L Hgb 12.6 L Hct 37.3 L MCV 93 MCH 31.4 MCHC 33.8 RDW 11.9 Plt Count 248 MPV 9.9 Immature Gran % 0.3 Neutrophils % 69.3 Lymphocytes % 12.4 Monocytes % 9.7 Eosinophils % 8.1 Basophils % 0.2 Nucleated RBC % 0.0 Absolute Neutrophils 4.31 Absolute Lymphocytes 0.77 L Absolute Monocytes 0.60 Absolute Eosinophils 0.50 Absolute Basophils 0.01 Sodium 140 Potassium 3.6 Chloride 106 Carbon Dioxide 24.9 Anion Gap 9.1 BUN 18 Creatinine 1.2 Est GFR (CKD-EPI 2020) 63.07 Glucose 90 Calcium 8.9 Magnesium 1.9 PSA Screen 6.0 Time Spent with Patient Time Spent with Patient: <25 minutes Time was spent: preparing to see the patient(eg.review tests), obtaining and/or reviewing separately otained hiistory and counseling the patient
[2022-07-15 07:37] VITALS: BP 153/75; PULSE 91; RESP 17; TEMP 37.3; O2SAT 98
[2022-07-15] MEDS: Aspirin E.C. 81 MG TABEC PO (07:56)
[2022-07-15] MEDS: Magnesium Oxide 400 MG TAB PO (07:56)
[2022-07-15] MEDS: Multivitamin TAB 1 TAB PO (07:56)
--- NOTE | 2022-07-15 10:18 | PDOC.CMPRO ---
- If Service Date Differs Date of service: 07/15/22 Time of Service: 10:18 Care Management Progress Note S/O: Светлана A: 77 year old make admitted to [facility] on 07/12/22 for Fever of unknown origin P: Anticipate, Светлана will discharge home with no new services when medically ready per provider. He will transport via private vehicle with . He will follow up with community providers and discharge plan of care as prescribed. CM will continue to support pt and his discharge planning needs.
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
--- NOTE | 2022-07-15 15:39 | PDOC.CMDIS ---
- If Service Date Differs Date of service: 07/15/22 Time of Service: 15:39 LACE Index Scoring Tool - Questions: Length of Stay (in days): 3 Acuity (Admit via E.D.?): Yes Comorbidities: Liver or Renal Disease E.D. Visits: 2 - Answers: Total Score: 13 Risk of Readmission: High Risk Care Management Discharge Reason for Hospitalization: Fever of unknown origin Discharge Plan: Светлана will discharge home with no new services. He will transport via private vehicle with and will follow up with community providers and discharge plan of care as prescribed. Patient/Family Education Needs: Review discharge instructions, activity, limitations, discuss Ask Me Three.
== END 2022-07-15 13:20 | disposition home or self-care (01) ==
LOC: ER 23:58 → MS 07-13 00:02
PROVIDERS: Internal Medicine; Urology; Admitting Provider Family Medicine; Emergency Provider Student in an Organized Health Care Education/Training Program; PCP Nurse Practitioner Family; Visit Provider Family Medicine
PROC: (CPT 52332; principal; 2022-07-14 13:15)
DX: R50.9 Fever, unspecified (principal); N13.30 Unspecified hydronephrosis; R33.9 Retention of urine, unspecified; R74.01 Elevation of levels of liver transaminase levels; R60.0 Localized edema; N40.0 Benign prostatic hyperplasia without lower urinary tract symptoms; I12.9 Hypertensive chronic kidney disease with stage 1 through stage 4 chronic kidney disease, or unspecified chronic kidney disease; N18.9 Chronic kidney disease, unspecified; J45.909 Unspecified asthma, uncomplicated; Z86.73 Personal history of transient ischemic attack (TIA), and cerebral infarction without residual deficits; R94.5 Abnormal results of liver function studies; F12.90 Cannabis use, unspecified, uncomplicated; Z20.822 Contact with and (suspected) exposure to COVID-19; N17.9 Acute kidney failure, unspecified; E83.42 Hypomagnesemia; Z87.440 Personal history of urinary (tract) infections
CPT/HCPCS: 52332; 36415; 51702; 80048; 80053; 84145; 84153; 87040; 87637; 96361; 96365; 96366; 96367; 96368; 96372; 99221; 99232; 99285; J1650; 74176; 74420; 81003; 81015; 83605; 83735; 85025; 93970; 99238; G0378; J0131; J1885; J2543; J2704; J3010

== ENCOUNTER 2022-07-28 06:08 | Day surgery (SDC) | payer MEDICARE, SELFPAY ==
[2022-07-28 06:15] VITALS: BP 171/86; PULSE 90; RESP 18; TEMP 36.3; O2SAT 99
[2022-07-28] MEDS: Lactated Ringers 1,000 ML 80 ML IV (06:53)
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
[2022-07-28 07:11] VITALS: BMI 25.1
[2022-07-28] MEDS: ceFAZolin 2 GM/50 ML BAG IVPB (07:35)
[2022-07-28] MEDS: Lidocaine 2% Jelly 6 ML SYR (07:48)
[2022-07-28] MEDS: Omnipaque 300 MG/ML 50 ML BTL (08:08)
--- NOTE | 2022-07-28 08:14 | DI.RAD_ITS ---
Exam(s) XR RETROGRADE IN OR EXAM: XR RETROGRADE IN OR CLINICAL HISTORY: LEFT HYDRONEPHROSIS. TECHNIQUE: Fluoroscopy was provided for Dr. Thao for guidance with performing retrograde procedure. COMPARISON: No exams were available for comparison FINDINGS: Please see procedure note for details. Fluoro time: 42.2 seconds RADIATION DOSE DELIVERED: demetrio Gonzalez=8.11 mGy
--- NOTE | 2022-07-28 08:21 | W.PM.DSUDISC ---
Date of service: 07/28/22 Time of Service: 08:21 Discharge Plan Disposition Condition: Stable Discharge Details Reason For Visit: Ureteroscopy Attending Provider: Darrion Thao Primary Care Provider: Eugenia Garrett Home Meds and New Rx's Prescriptions: No Action multivitamin tablet 1 tab PO DAILY sildenafil [Viagra] 25 MG tablet 100 mg PO PRN albuterol sulfate 8.5 GM HFA aerosol inhaler 1 - 2 puff Inhalation Q6H PRN ciprofloxacin HCl [Cipro] 500 mg tablet 500 mg PO BID Qty: 14 0RF atorvastatin [Lipitor] 40 mg Tablet 40 mg PO QPM Qty: 30 0RF fluticasone propionate [Flovent HFA] 110 mcg/actuation HFA aerosol inhaler 2 puff INHALATION BID Patient Comments: INHALE TWO PUFFS BY MOUTH TWICE A DAY aspirin 325 mg tablet 81 mg PO DAILY Discharge Instructions Additional Instructions: no need to strain urine followup @ 1 month for cystoscopy and stent removal - could be done in office or in OR Activity:: Activity as Tolerated Diet:: As Tolerated DS: Diagnosis Discharge Diagnosis (1) Hydronephrosis, left: Status: Acute (2) H/O urinary retention: Status: Acute (3) History of UTI: Status: Acute
--- NOTE | 2022-07-28 08:25 | ROE_ITS ---
Date of service: 07/28/22 Time of Service: 08:25 Operative Note Operative Note DATE OF PROCEDURE: 07/28/22 PRE-OP DIAGNOSIS: Left hydronephrosis POST-OP DIAGNOSIS: same Ureteral stricture PROCEDURE: cystoscopy, remove left ureteral stent, left ureteroscopy, left ureteral dilation, insert left ureteral stent SURGEON: Darrion Thao ANESTHESIA TYPE: General:No Airway Refer to Anesthesia Record ESTIMATED BLOOD LOSS: 10 PATHOLOGY: none sent COMPLICATIONS: None Patient's condition: stable Implants: 7 Mohawk by 22 to 30 cm left ureteral stent Indications: This is a 77-year-old gentleman who has a history of urinary retention. He performs clean intermittent catheterization. He has recently had a left back pain and hydronephrosis. We did a cystoscopy and retrograde pyelogram. There was a narrowing of the left distal ureter. We initially placed a ureteral stent. He comes in now for ureteroscopy to evaluate the strictured area Findings: left distal ureteal stricture with no visible tumor Procedure Description: The patient was given preoperative antibiotics and brought to the operating room on 07/28/2022. After successful induction of general anesthesia, he was placed in the dorsal lithotomy position. His genitalia was prepped and draped. 2% Xylocaine jelly was instilled into the urethra to act as a local anesthetic. A 22 Mohawk rigid cystoscope was then passed through the urethra into the bladder. The urethra and bladder were inspected with a 30 degree lens. The pendulous, bulbar and membranous urethra was all appeared normal with no strictures. The prostatic urethra showed lateral lobe enlargement and a rather elevated bladder neck. No significant median lobe of the bladder was identified. The bladder neck was entered and the bladder mucosa was inspected. A stent cou ld be seen protruding from the left ureteral orifice. The stent was grasped with alligator forceps and brought out to the level of the urethral meatus. I then passed a Glidewire down through the lumen of the stent and remove the stent leaving the wire in place. I passed a dual-lumen catheter over the wire and a second wire was positioned. I was then able to remove the cystoscope and passed a semirigid ureteroscope down through the urethra into the bladder. I advanced the scope into the left ureter. An narrowing was identified, but there were no papillary or nodular masses identified. The ureter above the stricture was quite dilated. The ureteroscope was then removed and I passed a UroMax balloon over one of the wires and positioned the balloon in the left distal ureter. The balloon was inflated and left inflated for 10 minutes. The balloon was then deflated and removed. We elected to place a larger ureteral stent so we chose a 7 Mohawk variable length stent and advanced it over the other guidewire. The proximal end of the stent was curled in the renal pelvis and the distal end was curled in the bladder. The positioning of the stent was confirmed both fluoroscopically and cystoscopically. The patient tolerated this procedure well with no complications. He was taken back to the day surgery unit in stable condition.
[2022-07-28 08:30] VITALS: BP 116/66; PULSE 54; RESP 17; TEMP 36.2; O2SAT 98
[2022-07-28 08:58] VITALS: BP 109/83; PULSE 58; RESP 16; TEMP 36.2; O2SAT 98
--- NOTE | 2022-07-28 08:58 | W.ANESPOSTOP ---
Postoperative Evaluation Date, Time and Location Date Performed: 07/28/22 Time Performed: 08:58 Patient Location: Day Surgery Unit Vital Signs Most Recent Imported Vital Signs: Most Recent Vital Signs Temp Pulse Resp BP Pulse Ox 36.2 C L 54 L 17 116/66 98 07/28/22 08:30 07/28/22 08:30 07/28/22 08:30 07/28/22 08:30 07/28/22 08:30 Pain Score Most Recent Pain Score: Most Recent Pain Score Pain Level 0 07/28/22 08:30 Assessment Mental Status: Awake (Alert & Oriented to Patient Baseline) Airway and Respiratory Function: Patent airway with normal (patient baseline) respiratory exam Cardiovascular Function: Hemodynamically Stable Hydration Status: Adequately Hydrated Nausea & Vomiting: No Nausea or Vomiting Pain: Pt. Denies Any Pain Peripheral Nerve Block: Patient did not receive a nerve block
== END 2022-07-28 09:55 | disposition home or self-care (01) ==
PROVIDERS: PCP Nurse Practitioner Family; Visit Provider Urology
PROC: (CPT 52341; principal; 2022-07-28 07:30)
DX: N13.1 Hydronephrosis with ureteral stricture, not elsewhere classified (principal); I10 Essential (primary) hypertension; R33.9 Retention of urine, unspecified
CPT/HCPCS: 52341; 52332; 74420; J0690; J1100; J1885; J2405; J2704; Q9967

== ENCOUNTER → 2022-08-22 08:25 | Outpatient (BNVA) | payer MEDICARE, SELFPAY | PROVIDERS: PCP Nurse Practitioner Family; Referring Provider Nurse Practitioner Family; Visit Provider Urology | DX: N13.30 Unspecified hydronephrosis (principal); Z46.6 Encounter for fitting and adjustment of urinary device; Z87.440 Personal history of urinary (tract) infections | CPT/HCPCS: 52000; 81003; 99213 ==

== ENCOUNTER 2022-08-25 11:46 | Outpatient (REF) | payer MEDICARE, SELFPAY ==
[2022-08-25 15:20] LABS: Abs Immature Grans 0.03 10^3/uL (0.0-0.06); Absolute Basophil Count 0.03 10^3/uL (0.0-0.2); Absolute Eosinophil Count 0.32 10^3/uL (0.0-0.7); Absolute Lymphocyte Count 1.41 10^3/uL (1.2-3.4); Absolute Neutrophil Count 3.32 10^3/uL (1.2-6.7); Basophils % 0.5; Eosinophils % 5.7; HCT 41.7 % (40.0-50.0); Immature Grans % 0.5; Lymphocytes % 25.1; MCH 31.3 pg (27.0-33.0); MCHC 33.6 % (32.0-36.0); MCV 93 fL (80-95); MPV 9.4 fL (8.0-11.0); Monocytes % 8.9; Neutrophils % 59.3; Platelet Count 392 10^3/uL (130-400); RBC 4.48 10^6/uL (4.36-5.78); RDW 12.9 % (11.8-14.1); RDW-SD 44.1 fL; WBC 5.61 10^3/uL (4.4-10.8)
[2022-08-25 16:04] LABS: Iron 91 ug/dL (65-175); Total Iron Binding Capacity 223 ug/dL (250-450); Transferrin Sat 41 % (20-55)
[2022-08-25 16:16] LABS: ALT 58 U/L (16-63); AST 37 U/L (15-37); Albumin 3.6 g/dL (3.4-5.0); Alkaline Phosphatase 95 U/L (46-116); Anion Gap 4.7 mmol/L (3-11); BUN 15 mg/dL (7-18); Bilirubin, Total 1.1 mg/dL (0.2-1.0); CO2 31.3 mmol/L (21.0-32.0); CREATININE 1.2 mg/dL (0.70-1.30); Calcium 9.4 mg/dL (8.5-10.1); Chloride 107 mmol/L (98-107); Estimated GFR 63.07 (mL/min/1.73m2); Ferritin 375 ng/mL (26-388); Glucose 99 mg/dL (74-106); Potassium 4.6 mmol/L (3.5-5.1); Sodium 143 mmol/L (136-145); Total Protein 7.1 g/dL (6.4-8.2)
== END 2022-08-25 11:47 | disposition home or self-care (01) ==
LOC: NCHCN 11:46
PROVIDERS: PCP Nurse Practitioner Family; Visit Provider Nurse Practitioner Family
DX: D64.9 Anemia, unspecified (principal); N13.30 Unspecified hydronephrosis; I10 Essential (primary) hypertension; E78.5 Hyperlipidemia, unspecified; R79.89 Other specified abnormal findings of blood chemistry
CPT/HCPCS: 80053; 82728; 83540; 83550; 85025

== ENCOUNTER 2022-09-29 00:34 | Outpatient (CLI) | payer MEDICARE, SELFPAY ==
--- NOTE | 2022-09-29 06:30 | DI.US_ITS ---
Exam(s) US RENAL EXAM: US RENALi CLINICAL HISTORY: check for resolution of hydronephrosis,LT,N13.30 TECHNIQUE: Ultrasound of both kidneys performed using standard protocol. COMPARISON: CT CT ABDOMEN PELVIS WO from 07/12/2022 FINDINGS: RIGHT KIDNEY: Measures 12 cm in length. Mild hydronephrosis. No cortical mantle thinning. No masses. No cysts. LEFT KIDNEY: Measures 12 cm in length. There is significant hydronephrosis on the left side, more so than on the right side, as was also seen on the prior CT scan. There is no prominent cortical mantle thinning. No intrarenal calculi, cysts, nor masses in the left kidney. No perinephric fluid. The visualized u pper ureter is also dilated to 1 cm diameter. URINARY BLADDER: Prevoid volume is 641 cc Postvoid volume is 401 cc Mild bladder trabeculation. No bladder diverticuli seen. No masses in the urinary bladder. Prostate gland: Grossly enlarged. Also lobulated. Ureterovesical jets: Right seen. Left is weak. IMPRESSION: 1. Left greater than right hydronephrosis, as was also evident on prior CT scan of June 3. Cause of this hydronephrosis is grossly enlarged prostate gland with urinary bladder outlet obstr uction. 2. At present there is no cortical mantle thinning in the kidneys. DATA REPOSITORY:
== END 2022-09-29 00:54 ==
LOC: DI 00:34
PROVIDERS: PCP Nurse Practitioner Family; Visit Provider Urology
DX: N13.30 Unspecified hydronephrosis (principal)
CPT/HCPCS: 76770

== ENCOUNTER → 2022-10-02 14:22 | Outpatient (BNVA) | payer MEDICARE, SELFPAY | PROVIDERS: PCP Nurse Practitioner Family; Referring Provider Nurse Practitioner Family; Visit Provider Nurse Practitioner Gerontology | DX: N13.30 Unspecified hydronephrosis (principal); Z87.440 Personal history of urinary (tract) infections | CPT/HCPCS: 99214 ==

== ENCOUNTER 2022-10-02 15:37 | Outpatient (REF) | payer MEDICARE, SELFPAY ==
[2022-10-02 15:56] LABS: BUN 16 mg/dL (7-18); CREATININE 1.3 mg/dL (0.70-1.30); Estimated GFR 57.29 (mL/min/1.73m2)
== END 2022-10-02 15:38 | disposition home or self-care (01) ==
LOC: LBN 15:37
PROVIDERS: PCP Nurse Practitioner Family; Visit Provider Nurse Practitioner Gerontology
DX: N13.30 Unspecified hydronephrosis (principal); Z87.440 Personal history of urinary (tract) infections
CPT/HCPCS: 84520; 82565

== ENCOUNTER 2022-10-03 08:30 | Outpatient (CLI) | payer MEDICARE, SELFPAY ==
--- NOTE | 2022-10-03 07:45 | DI.NM_ITS ---
Exam(s) NM DTPA RENOGRAM WO LASIX CLINICAL HISTORY: ? left kidney function, lt hydronephrosis, N13.30. COMPARISON: RECENT ULTRASOUND 09/29/2022 REVIEWED EXAMINATION: Dose: 9.5 mCi Tc-99m DTPA FINDINGS: There is significant split function was 62.3 percent activity in the right kidney and 37.7 percent ac tivity in left kidney. The time activity curve exhibits an obstructive pattern on the left side, commensurate with findings on the recent ultrasound. Time activity curve on the right side does not exhibit true obstruction pattern. Lasix apparently not administered IMPRESSION: 1. Findings are consistent with obstructive pattern on the left side. This finding is consistent wit h the appearance on the recent ultrasound examination.
== END 2022-10-03 08:50 ==
LOC: DI 08:32
PROVIDERS: PCP Nurse Practitioner Family; Visit Provider Nurse Practitioner Gerontology
DX: N13.30 Unspecified hydronephrosis (principal)
CPT/HCPCS: 78707

== ENCOUNTER → 2022-10-06 10:02 | Outpatient (BNVA) | payer MEDICARE, SELFPAY | PROVIDERS: PCP Nurse Practitioner Family; Referring Provider Nurse Practitioner Family; Visit Provider Urology | DX: N13.30 Unspecified hydronephrosis (principal) | CPT/HCPCS: 99443 ==

== ENCOUNTER 2022-10-09 06:13 | PSDC | payer MEDICARE, SELFPAY ==
[2022-10-09] VITALS (8 sets, daily range): BP systolic 84–141; BP diastolic 44–76; PULSE 60–80; RESP 9–18; TEMP 36.3–36.6; O2SAT 95–100; BMI 25.6
[2022-10-09] MEDS: Lactated Ringers 1,000 ML 80 ML IV (06:49)
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
[2022-10-09] MEDS: ceFAZolin 2 GM/50 ML BAG IVPB (07:36)
[2022-10-09] MEDS: Omnipaque 300 MG/ML 50 ML BTL (07:51)
[2022-10-09] MEDS: Lidocaine 2% Jelly 6 ML SYR (07:51)
--- NOTE | 2022-10-09 08:40 | W.PM.DSUDISC ---
Date of service: 10/09/22 Time of Service: 08:41 Discharge Plan Disposition Patient Disposition: Home Condition: Stable Discharge Details Reason For Visit: ureteral stent Attending Provider: Darrion Thao Primary Care Provider: Eugenia Garrett Home Meds and New Rx's Prescriptions: No Action multivitamin tablet 1 tab PO DAILY sildenafil [Viagra] 25 MG tablet 100 mg PO PRN albuterol sulfate 8.5 GM HFA aerosol inhaler 1 - 2 puff Inhalation Q6H PRN atorvastatin [Lipitor] 40 mg Tablet 40 mg PO QPM Qty: 30 0RF fluticasone propionate [Flovent HFA] 110 mcg/actuation HFA aerosol inhaler 2 puff INHALATION BID Patient Comments: INHALE TWO PUFFS BY MOUTH TWICE A DAY aspirin 325 mg tablet 81 mg PO DAILY Discharge Instructions Additional Instructions: followup appt in office for urodynamics Activity:: Activity as Tolerated Shower/Bathe:: 24 hours Activity:: Activity as Tolerated Diet:: As Tolerated Discharge Orders Discharge Orders: Discharge Order (Routine); Ordered 10/09/22 Ordered By: Darrion Thao DS: Diagnosis Discharge Diagnosis (1) Hydronephrosis, left: Status: Acute
--- NOTE | 2022-10-09 08:44 | W.PM.OP ---
Date of service: 10/09/22 Time of Service: 08:44 Operative Note Operative Note DATE OF PROCEDURE: 10/09/22 PRE-OP DIAGNOSIS: Left hydronephrosis POST-OP DIAGNOSIS: same left distal ureteral stricture PROCEDURE: cystoscopy, left retrograde pyelogram, insert left ureteral stent SURGEON: Darrion Thao ANESTHESIA TYPE: Local By Surgeon and General:No Airway Refer to Anesthesia Record ESTIMATED BLOOD LOSS: 10 PATHOLOGY: none sent COMPLICATIONS: None Patient was transported to: PACU Patient's condition: stable Implants: 6 Swedish by 22 to 30 cm left ureteral stent Indications: This is a 77-year-old gentleman who has a history of incomplete bladder emptying. He is currently performing clean intermittent catheterization. He previously presented to the hospital with sepsis and worsening renal function. He was found to have left hydronephrosis and hydroureter all the way down to the distal left ureter. No specific mass or stone was found in the area. We treated him with a stent. We attempted to balloon dilate the area and subsequently removed his ureteral stent. On follow-up, his hydronephrosis persisted. His renal function based on a renogram showed that the left kidney was providing over 35% of his renal function. He is agreeable to replacement of his ureteral stent. Findings: totuous left distal ureter Procedure Description: The patient was brought to the operating room on 10/09/2022. He is given preprocedural IV antibiotics. After successful induction of general anesthesia, he was placed in the dorsal lithotomy position. His genitalia was prepped and draped. 2% Xylocaine jelly was instilled into the urethra to act as a local anesthetic. A 22 Swedish rigid cystoscope was passed through the urethra into the bladder. The urethra and bladder were inspected with the 30 degree lens. The pendulous, bulbar and membranous urethra was showed no strictures. The prostatic urethra showed lateral lobe enlargement and a very small median lobe component. The bladder neck was entered and the bladder mucosa was inspected. The bladder was heavily trabeculated with multiple cellules. The left ureteral orifice was visualized and was cannulated with a 5 Swedish access catheter. I was initially able to advance a Glidewire through the lumen of the access catheter. The wire followed a loop exterior to the bladder before continuing up the remainder of the ureter. I was not able to pass the open-ended catheter over the wire up the ureter, but I was able to pass a stiffer dual-lumen catheter over the wire. The catheter was advanced into the mid ureter. I injected Omnipaque through the second port of the access catheter and outlined the ureter and collecting system. I removed the dual-lumen catheter and attempted to pass a 4.8 Swedish variable length stent over the wire. The stent was too flexible and would not go through the strictured/of looped area of the distal ureter. I lost access to my wire while I was attempting to position the stent. I then passed a semirigid ureteroscope through the urethra into the bladder. I was able to visualize the true lumen of the ureter and advanced the wire directly back up the ureter. Again the ureter followed a loop outside the bladder and up the remainder of the ureter. I then repositioned the dual-lumen catheter and placed a second Super Stiff wire. I was able to pass a 6 Swedish variable length stent over the wire and positioned the stent with the proximal end curled in the upper pole calyx and the distal end curled in the bladder. The positioning of the stent was confirmed both fluoroscopically and cystoscopically. The patient tolerated the procedure well. There were no complications. He was taken to the recovery room in stable condition.
--- NOTE | 2022-10-09 08:45 | DI.RAD_ITS ---
Exam(s) XR RETROGRADE IN OR EXAM: XR RETROGRADE IN OR CLINICAL HISTORY: Hydronephrosis, left TECHNIQUE: 2D and realtime digital imaging was performed. CONTRAST MATERIAL: Refer to procedure report. COMPARISON: No exams were available for comparison FINDINGS: Fluoroscopy was provided for Dr. Thao during the performance of a evaluation of the renal collectin g system. Please refer to the procedure report for complete details. Note is made of marked dilatat ion of the left renal collecting system. Ka,r=28.9 mGy IMPRESSION: RADIATION DOSE DELIVERED:
[2022-10-09] MEDS: ePHEDrine 25 MG/5 ML Syringe IVP (08:55)
--- NOTE | 2022-10-09 09:30 | W.ANESPOSTOP ---
Postoperative Evaluation Date, Time and Location Date Performed: 10/09/22 Time Performed: 09:30 Patient Location: PACU Vital Signs Most Recent Imported Vital Signs: Most Recent Vital Signs Temp Pulse Resp BP Pulse Ox 36.3 C L 63 11 L 91/59 L 96 10/09/22 09:15 10/09/22 09:15 10/09/22 09:15 10/09/22 09:15 10/09/22 09:15 Pain Score Most Recent Pain Score: Most Recent Pain Score Pain Level 0 10/09/22 09:15 Assessment Mental Status: Awake (Alert & Oriented to Patient Baseline) Airway and Respiratory Function: Patent airway with normal (patient baseline) respiratory exam Cardiovascular Function: Hemodynamically Stable Hydration Status: Adequately Hydrated Nausea & Vomiting: No Nausea or Vomiting Pain: Pt. Denies Any Pain Peripheral Nerve Block: Patient did not receive a nerve block
== END 2022-10-09 10:42 | disposition home or self-care (01) ==
PROVIDERS: PCP Nurse Practitioner Family; Visit Provider Urology
PROC: (CPT 74450; principal; 2022-10-09 07:30)
DX: N13.30 Unspecified hydronephrosis (principal); R33.8 Other retention of urine
CPT/HCPCS: 52332; 74420; J0690; J1100; J1885; J2405; J2704; J3010; Q9967

== ENCOUNTER 2022-10-31 12:40 | Outpatient (REF) | payer MEDICARE, SELFPAY ==
[2022-10-31 12:55] LABS: Bilirubin Negative (Negative); Blood Small (Negative); Clarity Cloudy (Clear); Glucose Negative (Negative); Ketones Negative (Negative); Leukocyte Esterase Large (Negative); Nitrite Positive (Negative); Specific Gravity 1.015 (1.005-1.025); Urobilinogen 0.2 mg/dL (Up to 0.2)
[2022-10-31 13:38] LABS: Bacteria Moderate HPF (Negative); Casts 0-2 Hyaline LPF (Negative); Crystals Negative HPF (Negative); Epithelial Cells Few HPF (Negative); Mucus Trace (Negative); RBC 0-2 HPF (0-2); WBC >50 HPF (0-5)
[2022-10-31 13:39] LABS: C & S Indicated? C&S Done As Ordered
== END 2022-10-31 12:41 | disposition home or self-care (01) ==
LOC: LBN 12:40
PROVIDERS: PCP Nurse Practitioner Family; Visit Provider Urology
DX: N39.0 Urinary tract infection, site not specified (principal)
CPT/HCPCS: 81003; 81015; 87086

== ENCOUNTER → 2022-12-09 12:53 | Outpatient (BNVA) | payer MEDICARE, SELFPAY | PROVIDERS: PCP Nurse Practitioner Family; Referring Provider Nurse Practitioner Family; Visit Provider Urology | DX: R31.9 Hematuria, unspecified (principal); Z87.898 Personal history of other specified conditions | CPT/HCPCS: 81003; 99213 ==

== ENCOUNTER 2022-12-09 16:54 | Outpatient (REF) | payer MEDICARE, SELFPAY | END 2022-12-09 16:55 | disposition home or self-care (01) | LOC: LBN 16:54 | PROVIDERS: PCP Nurse Practitioner Family; Visit Provider Urology | DX: R31.9 Hematuria, unspecified (principal) | CPT/HCPCS: 87086 ==

== ENCOUNTER 2022-12-15 13:05 | Outpatient (REF) | payer MEDICARE, SELFPAY ==
[2022-12-15 15:01] LABS: Anion Gap 5.6 mmol/L (3-11); BUN 16 mg/dL (7-18); CO2 29.4 mmol/L (21.0-32.0); CREATININE 1.2 mg/dL (0.70-1.30); Calcium 9.3 mg/dL (8.5-10.1); Chloride 105 mmol/L (98-107); Estimated GFR 63.07 (mL/min/1.73m2); Glucose 89 mg/dL (74-106); Potassium 4.6 mmol/L (3.5-5.1); Sodium 140 mmol/L (136-145)
== END 2022-12-15 13:06 | disposition home or self-care (01) ==
LOC: NCHCN 13:05
PROVIDERS: PCP Nurse Practitioner Family; Visit Provider Nurse Practitioner Family
DX: M25.512 Pain in left shoulder (principal); F52.21 Male erectile disorder; N13.30 Unspecified hydronephrosis; E78.5 Hyperlipidemia, unspecified; G45.9 Transient cerebral ischemic attack, unspecified; J45.20 Mild intermittent asthma, uncomplicated; I10 Essential (primary) hypertension; J30.2 Other seasonal allergic rhinitis
CPT/HCPCS: 80048

== ENCOUNTER → 2022-12-23 10:56 | Outpatient (BNVA) | payer MEDICARE, SELFPAY | PROVIDERS: PCP Nurse Practitioner Family; Referring Provider Nurse Practitioner Family; Visit Provider Urology | DX: R33.9 Retention of urine, unspecified (principal); Z96.0 Presence of urogenital implants | CPT/HCPCS: 99214 ==

== ENCOUNTER 2023-01-29 08:09 | Day surgery (SDC) | payer MEDICARE, SELFPAY ==
[2023-01-29 08:26] VITALS: BP 158/92; PULSE 85; RESP 17; TEMP 36.3; O2SAT 99
[2023-01-29] MEDS: Lactated Ringers 1,000 ML 80 ML IV (08:50)
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
[2023-01-29 09:11] VITALS: BMI 24.7
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
[2023-01-29] MEDS: ceFAZolin 2 GM/50 ML BAG IVPB (11:02)
--- NOTE | 2023-01-29 11:30 | DI.RAD_ITS ---
Exam(s) XR RETROGRADE IN OR EXAM: XR RETROGRADE IN OR CLINICAL HISTORY: Hydronephrosis, left. TECHNIQUE: 2D digital imaging was performed. COMPARISON: No exams were available for comparison FINDINGS: Fluoroscopy provided during urologic procedure left-side. See procedure report for details Total fluoroscopy time 1 minutes 32 seconds. IMPRESSION: Radiation exposure index/cumulative dose: demetrio Gonzalez= 20.660mGy DATA REPOSITORY: RADIATION DOSE DELIVERED:
--- NOTE | 2023-01-29 11:36 | PDOC.DSDIS_ITS ---
Date of service: 01/29/23 Time of Service: 11:36 Discharge Plan Disposition Condition: Stable Discharge Details Reason For Visit: cystoscopy with stent change Attending Provider: Darrion Thao Primary Care Provider: Eugenia Garrett Home Meds and New Rx's Prescriptions: No Action multivitamin tablet 1 tab PO DAILY sildenafil [Viagra] 25 MG tablet 100 mg PO PRN albuterol sulfate 8.5 GM HFA aerosol inhaler 1 - 2 puff Inhalation Q6H PRN atorvastatin [Lipitor] 40 mg Tablet 40 mg PO QPM Qty: 30 0RF fluticasone propionate [Flovent HFA] 110 mcg/actuation HFA aerosol inhaler 2 puff INHALATION BID Patient Comments: INHALE TWO PUFFS BY MOUTH TWICE A DAY ramipril 5 mg capsule 5 mg PO DAILY Patient Comments: TAKE ONE CAPSULE BY MOUTH EVERY DAY aspirin 325 mg tablet 81 mg PO DAILY Discharge Instructions Additional Instructions: I emptied the patients bladder after the procedure so he will not need to CIC again until this evening no followup appt with me, but have pt call my office after his consult at [facility] [place] is complete Activity:: Activity as Tolerated Shower/Bathe:: 24 hours Diet:: As Tolerated DS: Diagnosis Discharge Diagnosis (1) Hydronephrosis, left: Status: Acute
--- NOTE | 2023-01-29 11:38 | ROE_ITS ---
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 I did not identify any malignancy on ureteroscopy/biopsy. We found that the left kidney was providing at least 30% of his renal function so we have referred him to Dr. Easley at [facility] for consideration of a reimplantation of the left ureter. For the time being, he has an indwelling ureteral stent. The stent has been in place for about 4 months now, so he comes in to have his stent changed Findings: left distal ureteral stenosis Procedure Description: The patient was given IV antibiotics and brought to the operating room on 01/29/2023. After successful induction of general anesthesia, he was placed in the dorsal lithotomy position. His genitalia was prepped and draped with Betadine. 2% Xylocaine jelly was instilled into the urethra to act as a local anesthetic. A 22 Scottish rigid cystoscope was passed through the urethra into the bladder. The urethra and bladder were inspected with a 30 degree lens. The pendulous, bulbar and membranous urethra was all appeared normal with no strictures. The prostatic urethra showed lateral lobe enlargement with no significant median lobe. The bladder neck was entered and the bladder was inspected. The bladder was trabeculated but no papillary or nodular lesions were seen. The right ureteral orifice appeared normal. The left orifice had a stent protruding. The stent was grasped with alligator forceps and brought to the level of the urethral meatus. Very small amount of encrustation was found on the stent. A Glidewire was advanced through the lumen of the stent and the stent was removed leaving the wire in place. A 6 Scottish variable length stent was then advanced over the wire. The proximal end of the stent was placed in the renal pelvis and the distal end was curled within the bladder. The positioning of the stent was confirmed both fluoroscopically and cystoscopically. Again, a tortuous loop of distal ureter was identified. His bladder was emptied and the scope was removed. The patient tolerated this procedure well with no complications.
[2023-01-29 11:42] VITALS: BP 114/67; PULSE 86; RESP 16; TEMP 36.3; O2SAT 98
[2023-01-29 12:12] VITALS: BP 109/59; PULSE 62; RESP 17; TEMP 36.5; O2SAT 96
--- NOTE | 2023-01-29 13:01 | W.ANESPOSTOP ---
Postoperative Evaluation Date, Time and Location Date Performed: 01/29/23 Time Performed: 12:20 Patient Location: Day Surgery Unit Vital Signs Most Recent Imported Vital Signs: Most Recent Vital Signs Temp Pulse Resp BP Pulse Ox 36.5 C 62 17 109/59 L 96 01/29/23 12:12 01/29/23 12:12 01/29/23 12:12 01/29/23 12:12 01/29/23 12:12 Pain Score Most Recent Pain Score: Most Recent Pain Score Pain Level 0 01/29/23 12:12 Assessment Mental Status: Awake (Alert & Oriented to Patient Baseline) Airway and Respiratory Function: Patent airway with normal (patient baseline) respiratory exam Cardiovascular Function: Hemodynamically Stable Hydration Status: Adequately Hydrated Nausea & Vomiting: No Nausea or Vomiting Pain: Pt. Denies Any Pain Peripheral Nerve Block: Patient did not receive a nerve block
== END 2023-01-29 12:45 | disposition home or self-care (01) ==
PROVIDERS: PCP Nurse Practitioner Family; Visit Provider Urology
PROC: (CPT 74450; principal; 2023-01-29 10:15)
DX: N13.1 Hydronephrosis with ureteral stricture, not elsewhere classified (principal); I10 Essential (primary) hypertension; J45.909 Unspecified asthma, uncomplicated
CPT/HCPCS: 50385; 74420; J0690; J1100; J1885; J2405

== ENCOUNTER → 2023-07-06 01:22 | Outpatient (CLI) | payer MEDICARE, SELFPAY ==
--- NOTE | 2023-07-06 | DI.RAD_ITS ---
Exam(s) XR HIP LT COMPLETE AP PELVIS EXAM: XR HIP LT COMPLETE AP PELVIS CLINICAL HISTORY: LT HIP PAIN,M25.552,S/P FALL ON ICE. TECHNIQUE: 2D digital imaging was performed of the left hip. Two views were obtained. AP pelvis an d lateral left hip views were obtained. COMPARISON: No exams were available for comparison FINDINGS: BONES: No acute fracture is present. No bony destructive lesion is seen. JOINTS: No dislocation present. Degenerative changes are seen in the hips and in the lower lumbar spi ne. The sacroiliac joints are intact. SOFT TISSUE: Normal. IMPRESSION: No acute fracture or dislocation. DATA REPOSITORY: RADIATION DOSE DELIVERED:
== END ==
PROVIDERS: PCP Nurse Practitioner Family; Visit Provider Nurse Practitioner Family
DX: M25.552 Pain in left hip (principal)
CPT/HCPCS: 73502

== ENCOUNTER 2023-08-12 15:07 | Outpatient (REF) | payer MEDICARE, SELFPAY | END 2023-08-12 15:08 | disposition home or self-care (01) | LOC: LBN 15:07 | PROVIDERS: PCP Nurse Practitioner Family; Referring Provider Urology; Visit Provider Urology | DX: R30.0 Dysuria (principal) | CPT/HCPCS: 87086 ==

== ENCOUNTER 2024-04-12 23:59 | Outpatient (REF) | payer MEDICARE, SELFPAY ==
[2024-04-12 14:55] LABS: ALT 81 U/L (16-63); AST 44 U/L (15-37); Albumin 3.9 g/dL (3.4-5.0); Alkaline Phosphatase 92 U/L (46-116); Anion Gap 7.6 mmol/L (3-11); BUN 18 mg/dL (7-18); CO2 30.4 mmol/L (21.0-32.0); CREATININE 1.2 mg/dL (0.70-1.30); Calcium 9.2 mg/dL (8.5-10.1); Calculated LDL 82 mg/dL (<100); Chloride 106 mmol/L (98-107); Cholesterol 169 mg/dL (<200); Estimated GFR 62.29 (mL/min/1.73m2); Glucose 107 mg/dL (74-106); HDL Cholesterol 52 mg/dL (40-60); Potassium 4.4 mmol/L (3.5-5.1); Sodium 144 mmol/L (136-145); Total Protein 7.5 g/dL (6.4-8.2); Triglyceride 177 mg/dL (<150)
[2024-04-12 15:00] LABS: Hemoglobin A1C 5.4 % (<5.7)
== END 2024-04-13 | disposition home or self-care (01) ==
LOC: NCHCN 23:59
PROVIDERS: PCP Nurse Practitioner Family; Visit Provider Nurse Practitioner Family
DX: I10 Essential (primary) hypertension (principal); E78.5 Hyperlipidemia, unspecified
CPT/HCPCS: 80053; 80061; 83036

== ENCOUNTER 2024-09-06 00:37 | Outpatient (CLI) | payer MEDICARE, SELFPAY ==
--- NOTE | 2024-09-06 | DI.US_ITS ---
Exam(s) US RENAL EXAM: US RENAL CLINICAL HISTORY: F/U LT URETERAL REIMPLANT, OBSTRUCTION OF URETER UNSP LATERALITY, N13.5 TECHNIQUE: Ultrasound of both kidneys performed using standard protocol. COMPARISON: CT CT ABDOMEN PELVIS WO from 07/12/2022 US US RENAL from 09/29/2022 FINDINGS: RIGHT KIDNEY: Measures 11.3 cm in length. No cysts evident. Normal cortical thickness and corticomedullary differen tiation .No solid masses No intrarenal calculi nor hydronephrosis. LEFT KIDNEY: Measures 11.4 cm in length. No cysts evident. Normal cortical thickness and corticomedullary differe ntiaion. No solids masses. No intrarenal calculi nor hydonephrosis. The hydronephrosis evident in t he left kidney on the CT scan of June 2022 has resolved. Left kidney cortical mantle exhibits nor mal thickness URINARY BLADDER: Prevoid volume is 22 cc Postvoid volume is 20 cc Prostate gland is enlarged. Prostate volume is approximately [address] scan of September 14 the enlarged prostate measured 5 point 8 cm wide.. Appears to have an eccentric nodule. PSA crystal ting recommended. No evidence of obvious bladder mass nor diverticuli, realizing there there is only 22 cc of urine in the bladder lumen. Ureterovesical jets: Of both were not identified. IMPRESSION: 1. No significant ultrasound findings in the kidneys. The left-sided hydronephrosis which was evide nt on CT scan of June 2022 is no longer evident and there is no thinning of the cortical mantle of the left kidney. Right kidney also appears unremarkable. 2. Enlarged prostate gland with only 22 cc of urine in the bladder lumen. DATA REPOSITORY:
== END 2024-09-06 00:57 ==
LOC: DI 00:37
PROVIDERS: PCP Nurse Practitioner Family; Visit Provider Urology
DX: N13.5 Crossing vessel and stricture of ureter without hydronephrosis (principal)
CPT/HCPCS: 76770

== ENCOUNTER 2024-10-11 10:24 | Outpatient (REF) | payer MEDICARE, SELFPAY ==
[2024-10-11 15:58] LABS: ALT 93 U/L (16-63); AST 56 U/L (15-37); Albumin 3.8 g/dL (3.4-5.0); Alkaline Phosphatase 93 U/L (46-116); Anion Gap 9.4 mmol/L (3-11); BUN 14 mg/dL (7-18); Bilirubin, Total 1.3 mg/dL (0.2-1.0); CO2 27.6 mmol/L (21.0-32.0); CREATININE 1.2 mg/dL (0.70-1.30); Calcium 9.3 mg/dL (8.5-10.1); Chloride 106 mmol/L (98-107); Estimated GFR 62.29 (mL/min/1.73m2); Glucose 95 mg/dL (74-106); Potassium 4.4 mmol/L (3.5-5.1); Sodium 143 mmol/L (136-145); Total Protein 7.2 g/dL (6.4-8.2)
== END 2024-10-11 10:25 | disposition home or self-care (01) ==
LOC: NCHCN 10:24
PROVIDERS: PCP Nurse Practitioner Family; Visit Provider Nurse Practitioner Family
DX: R79.89 Other specified abnormal findings of blood chemistry (principal)
CPT/HCPCS: 80053

== ENCOUNTER 2024-11-02 01:56 | Outpatient (CLI) | payer MEDICARE, SELFPAY ==
--- NOTE | 2024-11-02 | DI.US_ITS ---
Exam(s) US ABDOMEN LIMITED EXAM: US ABDOMEN LIMITED CLINICAL HISTORY: ABNL BLOOD CHEMISTY FINDING,R79.9 TECHNIQUE: Ultrasound abdomen performed using standard protocol. COMPARISON: No exams were available for comparison FINDINGS: PANCREAS: Normal where visualized. LIVER: There is diffuse increased echogenicity of the liver consistent with hepatic steatosis. Hepat opetal flow in the Portal Vein. The liver measures in 14.1 cm length. No evidence of a hepatic mass. GALLBLADDER:There is a 7 mm stone seen in the gallbladder neck. No evidence of wall thickening. No p ericholecystic fluid identified. BILIARY SYSTEM: Common bile duct measures < 7 mm. No intrahepatic biliary ductal dilation. SOLOMON'S SIGN: Negative. RIGHT KIDNEY: Kidney is normal in size. No evidence of renal calculi. No evidence of hydronephrosis. No renal mass or cyst identified. ASCITES: None seen. IMPRESSION: 1. 7 mm gallstone in the gallbladder neck. No biliary ductal dilatation. There is a negative sonogr aphic Solomon sign. 2. Hepatic steatosis. DATA REPOSITORY:
== END 2024-11-02 02:16 ==
LOC: DI 01:56
PROVIDERS: PCP Nurse Practitioner Family; Visit Provider Nurse Practitioner Family
DX: K76.0 Fatty (change of) liver, not elsewhere classified (principal); K80.20 Calculus of gallbladder without cholecystitis without obstruction
CPT/HCPCS: 76705

== ENCOUNTER 2025-04-18 13:04 | Outpatient (REF) | payer MEDICARE, SELFPAY ==
[2025-04-18 15:29] LABS: Abs Immature Grans 0.03 10^3/uL (0.0-0.06); HCT 52.8 % (40.0-50.0); HGB 17.5 g/dL (13.5-17.5); Immature Grans % 0.4 %; MCH 31.3 pg (27.0-33.0); MCHC 33.1 % (32.0-36.0); MCV 95 fL (80-95); MPV 10.1 fL (8.0-11.0); Platelet Count 227 10^3/uL (130-400); RBC 5.59 10^6/uL (4.36-5.78); RDW 12.6 % (11.8-14.1); RDW-SD 44.1 fL; WBC 6.77 10^3/uL (4.4-10.8)
[2025-04-18 15:54] LABS: ALT 116 U/L (16-63); AST 60 U/L (15-37); Albumin 4.1 g/dL (3.4-5.0); Alkaline Phosphatase 93 U/L (46-116); Anion Gap 6.7 mmol/L (3-11); BUN 15 mg/dL (7-18); Bilirubin, Total 1.2 mg/dL (0.2-1.0); CO2 31.3 mmol/L (21.0-32.0); Calcium 9.4 mg/dL (8.5-10.1); Chloride 103 mmol/L (98-107); Glucose 93 mg/dL (74-106); Potassium 4.5 mmol/L (3.5-5.1); Sodium 141 mmol/L (136-145); Total Protein 7.8 g/dL (6.4-8.2)
[2025-04-19 13:31] LABS: Hepatitis A Antibody IgM Negative (Negative); Hepatitis C Ab w Rflx HCV PCR Negative (Negative)
== END 2025-04-18 13:05 | disposition home or self-care (01) ==
LOC: NCHCN 13:04
PROVIDERS: PCP Nurse Practitioner Family; Visit Provider Nurse Practitioner Family
DX: N18.9 Chronic kidney disease, unspecified (principal); K76.0 Fatty (change of) liver, not elsewhere classified; R79.89 Other specified abnormal findings of blood chemistry
CPT/HCPCS: 80053; 86704; 86709; 86803; 87340; 85025